=== PATIENT | female | born 1965 | race Caucasian/White ===

== ENCOUNTER 2016-07-11 17:36 | Inpatient (IN) ==
[2016-07-11] MEDS ORDERED: BENADRYL ONE (17:50)
[2016-07-11] MEDS ORDERED: BENADRYL IV ONE (17:50)
[2016-07-11] MEDS ORDERED: ATIVAN IV ONE (17:58)
[2016-07-11] MEDS ORDERED: ATIVAN ONE (17:59)
[2016-07-11] MEDS ORDERED: NS 2,000 ML ONE (18:07)
[2016-07-11] MEDS ORDERED: NS 1,000 ML IV ONE ×4 (18:23→20:53)
[2016-07-11] MEDS ORDERED: LEVOPHED ONE (18:27)
[2016-07-11] MEDS ORDERED: LEVOPHED 8 MG in D5 1/2 NS 250 ML IV SCH (18:30)
[2016-07-11 18:43] LABS: BASO% 0.1 % (0.0-0.8); EOS# 0.01 X1000 (0.0-0.7); HEMATOCRIT 39.2 % (37.0-47.0); HEMOGLOBIN 12.6 g/dL (12.0-16.0); IMM GRAN# 0.07 X1000 (0.0-0.04); IMM GRAN% 0.3 % (0.0-0.5); LYMPH# 11.11 X1000 (1.2-3.4); MANUAL DIFF NEEDED? YES; MCH 29.4 PG (27-31); MCHC 32.1 g/dL (33-37); MCV 91.6 FL (81-99); MONO# 1.29 X1000 (0.11-0.59); MONO% 5.5 % (1.7-9.3); MPV 11.3 FL (7.4-10.4); NEUT% 47.1 % (42.2-75.2); PLT 191 X1000 (130-400); RBC 4.28 XMIL (4.2-5.4)
[2016-07-11 18:49] LABS: ALBUMIN 3.9 g/dL (3.5-5.0); CALCIUM 9.2 mg/dL (8.8-10.2); POTASSIUM 4.2 mmol/L (3.5-5.1); TOTAL BILIRUBIN 0.5 mg/dL (0.20-1.00); TOTAL PROTEIN 6.7 g/dL (6.3-8.3)
[2016-07-11] MEDS ORDERED: NS 1,000 ML ONE ×2 (18:57→20:31)
[2016-07-11 19:03] LABS: INR 1.01 (0.86-1.15); PROTIME 13.6 Seconds (12.1-15.5); PTT PL 26.4 Seconds (22.6-43.9)
[2016-07-11 19:05] LABS: LYMPHS 34 % (21-51); MONO 6 % (1-9)
[2016-07-11 19:07] LABS: BE -8.2 mmoll (-3.0-3.0); BLOOD TYPE ARTERIAL; DRAW SITE R BRACHIAL; METHB 1.5 % (0.0-1.5); O2(CT) 15.8 mL/dL (15.0-23.0); PO2(98.6) 83 mmHg (60-100); SAMPLE BLOOD; SAO2 96.8 % (95.0-100.0)
[2016-07-11] MEDS ORDERED: SODIUM BICARBONATE 8.4% IV ONE ×2 (19:07→21:35)
[2016-07-11 19:11] LABS: MAGNESIUM 2.1 mg/dL (1.5-2.7)
[2016-07-11 19:14] LABS: pH(98.6) 7.19 (7.35-7.45)
[2016-07-11 19:15] LABS: ALLEN TEST YES; MODALITY CANNULA; PCO2(98.6) 53 mmHg (35-45)
[2016-07-11 19:25] LABS: ACETONE SERUM NEGATIVE (NEGATIVE)
[2016-07-11 19:37] LABS: CK INDEX 1.3 (0.0-2.5); CK-MB 9.75 ng/mL (0.0-5.0)
[2016-07-11 19:41] LABS: FREE T4 1.04 ng/dL (0.93-1.70)
[2016-07-11 20:59] LABS: BILIRUBIN URINE NEGATIVE (NEGATIVE); BLOOD URINE 4+ (NEGATIVE); CLARITY SL. CLOUDY (CLEAR); COLOR YELLOW; GLUCOSE URINE NEGATIVE (NEGATIVE); LEUKOCYTES URINE 1+ (NEGATIVE); NITRITE URINE NEGATIVE (NEGATIVE); PROTEIN URINE 2+(100 mg/dL) mg/dL (NEGATIVE); UROBILINOGEN URINE NORMAL
[2016-07-11 21:07] LABS: UR AMPHETAMINES QUAL NONE DETECTED (NONE DETECT); UR BARBITUATES QUAL NONE DETECTED (NONE DETECT); UR BENZODIAZEPIN QUAL NONE DETECTED (NONE DETECT); UR CANNABINOIDS QUAL NONE DETECTED (NONE DETECT); UR COCAINE QUAL NONE DETECTED (NONE DETECT); UR MDMA QUAL NONE DETECTED (NONE DETECT); UR METHADONE QUAL NONE DETECTED (NONE DETECT); UR METHAMPHETAMINE QUAL NONE DETECTED (NONE DETECT); UR OPIATES QUAL NONE DETECTED (NONE DETECT); UR OXYCODONE QUAL PRESUMPTIVE POSITIVE (NONE DETECT); UR PCP QUAL NONE DETECTED (NONE DETECT); UR TCA QUAL NONE DETECTED (NONE DETECT)
[2016-07-11 21:11] LABS: URINE EPITHELIAL CELLS <10 /HPF (<10); URINE WBC <10 /HPF (<10)
[2016-07-11 21:12] LABS: URINE CULTURE PL NEEDED? YES
[2016-07-11 21:13] LABS: URINE SOURCE CATH
[2016-07-11] MEDS ORDERED: VANCOMYCIN 1 GM/NS 1 GM/250 ML IVPB IV ONE (21:19)
[2016-07-11] MEDS ORDERED: ZOSYN 3.375 GM/NS 3.375 GM/50 ML IVPB IV ONE (21:19)
[2016-07-12] MEDS ORDERED: TYLENOL PO PRN ×2 (00:22→13:28)
[2016-07-12] MEDS ORDERED: ZOFRAN IV PRN ×2 (00:22→13:26)
[2016-07-12] MEDS ORDERED: NS 1,000 ML IV ONE (00:22)
[2016-07-12] MEDS ORDERED: MORPHINE IV PRN (00:22)
[2016-07-12] MEDS ORDERED: SALINE LOCK IV FLUID XX ONE (00:22)
[2016-07-12] MEDS ORDERED: VANCOMYCIN IV PER PHARMACY MISC SCH ×2 (00:30→13:00)
--- NOTE | 2016-07-12 00:57 | Diag Imaging Result Document ---
PROCEDURE NAME: HEAD W/O CONTRAST - 07/11/2016 STUDY: CT brain without. PROTOCOL: Dose reduction protocol. No parenchymal hemorrhage. No epidural or subdural hematoma. No subarachnoid hemorrhage. No mass identified on this noncontrasted exam. No hydrocephalus. IMPRESSION: No hemorrhage. Negative brain CT without contrast. A preliminary report was given at 8:49 p.m.
[2016-07-12] MEDS ORDERED: VANCOMYCIN 1 GM/NS 1 GM/250 ML IVPB IV ONE ×2 (01:00→01:15)
--- NOTE | 2016-07-12 01:41 | Diag Imaging Result Document ---
PROCEDURE NAME: ABDOMEN/PELVIS W/O CONTRAST - 07/11/2016 STUDY: CT abdomen and pelvis without oral or intravenous contrast. Normal spleen and adrenal glands. Normal noncontrasted pancreas and liver. The gallbladder is distended. No calcified stones or adjacent inflammation. No renal stones. No hydronephrosis. No aortic aneurysm. No bowel obstruction. Normal appendix. No abscess. A Cotto catheter has the urinary bladder decompressed. Normal uterus. No pelvic mass. No free fluid. IMPRESSION: 1. No renal stones or hydronephrosis. 2. No bowel obstruction. 3. Normal appendix. 4. Distended gallbladder but no adjacent inflammation or calcified stones. A preliminary report was given at 10:08 p.m.
[2016-07-12] MEDS ORDERED: NORCURON IV ONE (02:14)
[2016-07-12 02:27] LABS: BE -3.4 mmoll (-3.0-3.0); BLOOD TYPE ARTERIAL; DRAW SITE R RADIAL; METHB 1.2 % (0.0-1.5); O2(CT) 17.7 mL/dL (15.0-23.0); PO2(98.6) 98 mmHg (60-100); SAMPLE BLOOD; SAO2 98.6 % (95.0-100.0); SRATE 16 BPM; THB 13.1 g/dL (11.5-17.4); TVOL 500 mL; pH(98.6) 7.21 (7.35-7.45)
[2016-07-12 02:34] LABS: PCO2(98.6) 64 mmHg (35-45)
[2016-07-12 02:35] LABS: ALLEN TEST YES; MODALITY VENTILATOR
[2016-07-12] MEDS ORDERED: LASIX ONE (03:55)
[2016-07-12] MEDS ORDERED: LASIX IV ONE (03:56)
[2016-07-12] MEDS: SODIUM CHLORIDE 0.9% INJ SCH (04:50)
[2016-07-12] MEDS: PROTONIX IV SCH (04:50)
[2016-07-12] MEDS: HEPARIN SUBQ SCH ×3 (04:50→21:08)
[2016-07-12] MEDS: ZOSYN 2.25 GM/NS 2.25 GM/50 ML IVPB IV SCH ×3 (04:53→20:26)
[2016-07-12 05:00] LABS: ALLEN TEST YES; BE -7.2 mmoll (-3.0-3.0); BLOOD TYPE ARTERIAL; DRAW SITE R RADIAL; METHB 1.5 % (0.0-1.5); O2(CT) 23.4 mL/dL (15.0-23.0); PO2(98.6) 309 mmHg (60-100); SAMPLE BLOOD; SAO2 100.1 % (95.0-100.0); SRATE 15 BPM; THB 16.6 g/dL (11.5-17.4); TVOL 500 mL
[2016-07-12] MEDS ORDERED: ZOSYN 3.375 GM/NS 3.375 GM/50 ML IVPB IV SCH (05:00)
[2016-07-12 05:02] LABS: MODALITY VENTILATOR; PCO2(98.6) 67 mmHg (35-45); pH(98.6) 7.15 (7.35-7.45)
[2016-07-12] MEDS: DIPRIVAN 1% 1,000 MG/100 ML BOTTLE IV SCH ×8 (05:40→22:32)
--- NOTE | 2016-07-12 06:51 | HISTORY AND PHYSICAL ---
CHIEF COMPLAINT: Altered mental status. HISTORY OF PRESENT ILLNESS: This is a 50-year-old female who presented to [facility]. On arrival, she was exhibiting signs of erratic behavior apparently. It was originally thought that she had some sort of serotonin syndrome type process happening. She was given Benadryl and Ativan at that time. Laboratory data was obtained as well as CT scans. The CT scan of her head showed no hemorrhage, no acute intracranial process. CT of her abdomen and pelvis without contrast showed a mildly distended gallbladder but no adjacent inflammation or calcified stones. Otherwise was a negative exam. The patient does not have a history of COPD, CLL , questionable diabetes mellitus type 2. The patient does continue to smoke 1 pack of cigarettes per day reportedly. Laboratory data was obtained and showed an elevated white blood cell count of 23.63. The lymphocytes were noted to be 11.11 with neutrophils being 11.12. ABG pH was 7.19, pCO2 was 53, PO2 was 83. The patient's BUN was 41 with a creatinine of 2.7. She has a baseline creatinine of 0.5, which was recorded in March of this year. At some point in the emergency room at [facility], the patient became severely combative and required sedation to the point that she was placed on the ventilator. She was transferred to [facility] to be placed in the ICU for further evaluation and treatment. There is no family at the bedside and the patient is intubated and sedated. All information listed further in this HPI will be from verbal report given from Dr. Pulido, ER provider as well as, previous medical history. PAST MEDICAL HISTORY: 1. COPD, continues to smoke. 2. CLL. 3. Questionable diabetes mellitus type 2. PREVIOUS SURGICAL HISTORY: BTL. SOCIAL HISTORY: Reportedly lives at home with her family. Smokes 1 pack of cigarettes per day. Does not use illicit drugs. Unknown whether the patient uses alcohol. FAMILY HISTORY: Family history could not be obtained related to the patient's mentation at this time. HOME MEDICATIONS: The list has not been reconciled. An order will be placed for nursing to reconcile home medications when possible. ALLERGIES: No known drug allergies. REVIEW OF SYSTEMS: Review of systems was unobtainable related to patient's condition. PHYSICAL EXAMINATION: VITAL SIGNS: Temperature 97.7 degrees, pulse 78, respirations 19, blood pressure 90/53. The patient is on Levophed. Oxygen saturation 99% on mechanical ventilation. GENERAL: A sedated 50-year-old female, mechanically ventilated in ICU. No family at bedside. HEENT: Head is atraumatic, normocephalic. Pupils are 2 mm, fixed, sluggishly reactive to light. Extraocular eye movements could not be tested. Sclerae are anicteric. Conjunctivae are pink. Oral mucosa is moist. NECK: Short and thick. Trachea is midline. No JVD. CARDIAC: Regular rhythm. S1-S2 appreciated. No murmurs, gallops, rubs. LUNGS: Clear to auscultation bilaterally. No rhonchi, wheezes or rales. The patient is on mechanical ventilation. Symmetrical rise and fall with respirations. ABDOMEN: Protuberant, soft, nondistended, nontender. Bowel sounds present in all 4 quadrants. Hypoactive. No pulsatile mass. No organomegaly. GENITOURINARY: Cotto catheter is in place. Patient is anuric at this time. No urine in Cotto bag. Otherwise deferred. EXTREMITIES: No clubbing, cyanosis, or edema. One plus pedal pulses bilaterally. SKIN: Warm, dry and intact. No acute lesions or rash. NEUROLOGICAL: Patient is sedated with propofol on mechanical ventilation. Could not be assessed at this time. DIAGNOSTIC DATA: CT of the head, no acute intracranial process. No hemorrhage. CT of the abdomen and pelvis without contrast. Mildly distended gallbladder with no surrounding inflammation, otherwise negative examination. LABORATORY DATA: WBC 23.63, hemoglobin 12.6, hematocrit 39.2, platelet count 191,000. Coagulation studies within normal limits. D-dimer 0.31. ABG pH on arrival 7.19 , pCO2 53, PO2 83, bicarb 18.45. After intubation ABG recheck pH 7.21, pCO2 64, PO2 98, bicarb 22.2, sodium 142, potassium 4.2, chloride 104, carbon dioxide 18, BUN 41, creatinine 2.7, glucose 113. CK 723, troponin less than 0.010. Urine 4+ bacteria, 1+ WBC. Toxicology screen presumptively positive for oxycodone. Flu, strep and mono screen negative. Acetone level negative. ASSESSMENT/PLAN: 1. Toxic versus metabolic encephalopathy secondary to acute kidney injury or medications. It is unknown if the patient normally takes oxycodone or in what quantity she took this. She also reportedly takes antidepressives of some sort. The list is not available at this time. Patient is also in acute kidney injury with a creatinine of 2.7. In March of this year, her creatinine was 0.5. She was given 5 L of fluid at [facility] and is still anuric at this time and hypotensive. We will continue Levophed. 2. Questionable aspiration. Zosyn and vancomycin were given at [facility]. We will continue Zosyn 2.275 IV q.6 hours for renal dosing. 3. Urinary tract infection. This will be treated with Zosyn as noted above. 4. Acute respiratory failure. The patient has chronic obstructive pulmonary disease and was noted to be in mixed acidosis with an elevated CO2 and a low bicarbonate of 18.4. We will consult Dr. Gage Laboy for ventilation management. 5. Acute kidney injury. Fluid resuscitation x5 L boluses was given in [facility], 80 mg of Lasix was given in the ICU, as the patient is feeling anuric. We will consult Dr. Stallworth for assistance in this matter. 6. Additional orders. Blood cultures are pending as well as a cortisol level. We will check a TSH. Recheck laboratory data with CBC and BMP. We will order a renal ultrasound related to acute kidney injury to rule out obstruction. Continue propofol for sedation on ventilator. Protonix 40 mg IV q.24 hours and heparin 5000 units subcutaneously q.8 hours. Further recommendation per patient and clinical course. Dictated by ROSA Leung for Cory Tovar MD I personally reviewed above plan and examined patient cc: ROSA Leung MD MTDD
--- NOTE | 2016-07-12 07:36 | Diag Imaging Result Document ---
PROCEDURE NAME: CHEST-PORTABLE - 07/11/2016 PORTABLE CHEST: COMPARISON: 04/21/2016. FINDINGS: The lungs are well expanded. The heart is not enlarged. The vessels are not distended. No pneumonia. No pleural effusions identified. IMPRESSION: Negative chest.
--- NOTE | 2016-07-12 07:52 | Diag Imaging Result Document ---
PROCEDURE NAME: CHEST-1 VIEW - 07/12/2016 PORTABLE SUPINE CHEST: COMPARISON: 07/11/2016. FINDINGS: Interval placement of an endotracheal tube. This is located approximately 5 cm above the juan. The lungs are well expanded. The heart is not enlarged. The vessels are not distended. No pneumonia. No pleural effusions identified. IMPRESSION: Endotracheal tube in good position.
[2016-07-12 09:53] LABS: BASO% 0.2 % (0.0-0.8); EOS# 0.02 X1000 (0.0-0.7); EOS% 0.1 % (0.0-10.0); HEMOGLOBIN 13.2 g/dL (12.0-16.0); IMM GRAN# 0.05 X1000 (0.0-0.04); IMM GRAN% 0.2 % (0.0-0.5); LYMPH# 10.38 X1000 (1.2-3.4); LYMPH% 50.9 % (20.5-51.1); MANUAL DIFF NEEDED? YES; MCH 30.1 PG (27-31); MCHC 32.2 g/dL (33-37); MCV 93.4 FL (81-99); MONO# 1.04 X1000 (0.11-0.59); MONO% 5.1 % (1.7-9.3); MPV 11.1 FL (7.4-10.4); NEUT% 43.5 % (42.2-75.2); PLT 176 X1000 (130-400); RBC 4.39 XMIL (4.2-5.4)
[2016-07-12 10:01] LABS: MONO 2 % (1-9)
[2016-07-12 10:02] LABS: LYMPHS 32 % (21-51)
[2016-07-12 10:23] LABS: CALCIUM 7.7 mg/dL (8.8-10.2); POTASSIUM 3.6 mmol/L (3.5-5.1)
[2016-07-12] MEDS: 1/2 NS 1,000 ML IV SCH (10:37)
--- NOTE | 2016-07-12 10:56 | Diag Imaging Result Document ---
PROCEDURE NAME: US RENAL 2 (RETROPER) COMPLETE - 07/12/2016 RENAL ULTRASOUND: FINDINGS: The right kidney measures 11.4 x 5.8 x 4.8 cm. Normal renal echogenicity and cortical thickness. No renal stone or hydronephrosis. No renal mass. The left kidney measures 11.2 x 5.0 x 5.7 cm. Normal renal echogenicity and cortical thickness. No renal stone or hydronephrosis. No renal mass. A Cotto catheter has the urinary bladder decompressed. IMPRESSION: Normal renal ultrasound.
[2016-07-12] MEDS ORDERED: NS 250 ML ONE (11:34)
--- NOTE | 2016-07-12 12:14 | PROGRESS NOTE ---
DATE: 07/12/2016 SUBJECTIVE: The patient is sedated and intubated. OBJECTIVE: Vital Signs: Temperature 98.4, heart rate 64, respiratory rate 20, blood pressure 116/80. O2 saturation 100% on mechanical ventilator. General: This is a 50- year-old, female lying in bed, sedated and intubated. HEENT: Head is normocephalic and atraumatic. Anicteric sclerae. Pale conjunctivae. Pupils equally round and reactive to light and accommodation. Mucous membranes moist. Neck: No JVD noted. No carotid bruits. No lymphadenopathy. No thyromegaly. Cardiovascular: S1, S2 heard. No murmurs, gallops, or rubs. Regular rate and rhythm. Respiratory: Clear bilaterally to auscultation. No work of breathing or using accessory muscles. Mild coarse breath sounds in both bases. Abdomen is soft, nontender to palpation. Bowel sounds present. No organomegaly. Extremities: No clubbing, cyanosis, or edema. Peripheral pulses present in both legs but faint. Neurologic: The patient is sedated and intubated. LABORATORY DATA: White cell count 20.41, hemoglobin 13.2, hematocrit 41.0, platelets 176,000. ABG shows pH 7.15 with PCO2 of 67, pO2 of 309. BMP still pending. ASSESSMENT: 1. Acute respiratory failure, on ventilator. 2. Toxic versus metabolic encephalopathy. 3. Questionable aspiration. 4. Urinary tract infection. 5. Acute kidney injury. PLAN: The patient was admitted to the hospital, but we do not have anymore information. Apparently, the patient was found kind of altered at home. She was brought to the hospital. X- ray did not show any clear pneumonia. In any case, the patient is on antibiotics. White cell count is high. The patient is not spiking any fever. The patient has respiratory acidosis and hypoventilating. Also, for UTI, the patient receiving Zosyn and the urine cultures still pending. For BRANDON, Dr. Stallworth has been consulted. Addendum: Family at bedside they reported patient has COPD and leukemia, Dr. Lam is her primary oncologist. I think it could be COPD exacerbation plus BRANDON. Patient does not take Oxycodone in a regular basis but took some 2 days ago. In any case that could explain encephalopathy considering that patient does not take pain pills regular and in the setting of BRANDON that medication would stay in the system more time that it is supposed to. Will continue monitoring this patient in ICU. cc: Reji Schmitt MD MTDD
[2016-07-12] MEDS: DUONEB (A & A) INH SCH ×4 (12:24→23:32)
[2016-07-12] MEDS: SOLU-MEDROL IV SCH ×2 (12:29→20:25)
--- NOTE | 2016-07-12 13:02 | CONSULTATION ---
DATE OF CONSULTATION: 07/12/2016 REASON FOR CONSULTATION: Acute kidney injury. HISTORY OF PRESENT ILLNESS: Ms. Leon is a 50-year-old white female who is currently sedated on the ventilator and unable to provide any history. Therefore, the history is obtained entirely from the chart. She is a 50-year-old woman who presented to [place] with "erratic behavior." She was treated initially with Ativan and Benadryl and underwent imaging which disclosed no acute findings. Her laboratory data disclosed significant CO2 retention and acute kidney injury. She required further sedation and was then placed on the ventilator. She was treated with IV fluids and also required transient vasopressor support for hypotension. Her initial laboratory data found a creatinine of 2.7. She has been treated with volume resuscitation and subsequently has had an increase in her urine output. PAST MEDICAL HISTORY: COPD, CLL, possible diabetes. HOME MEDICATIONS: Not available. ALLERGIES: None known. SOCIAL HISTORY: Smoker. FAMILY HISTORY: Not otherwise obtainable. REVIEW OF SYSTEMS: Not otherwise obtainable. VITAL SIGNS: Blood pressure 116/80, heart rate 64, respirations 23, afebrile. Intake 1.6 L. Output 1.2 L PHYSICAL EXAMINATION: No acute distress. She is sedated on the ventilator. Skin is warm and dry. Conjunctivae are pink. Pupils are equal and 2 mm. Oropharynx is clear and moist. Neck veins are not distended. Trachea is midline. Heart is regular without gallops or murmurs. Lungs have equal breath sounds. No crackles or wheezes. Abdomen is soft, nontender. No organomegaly, masses, or bruits. Bowel sounds are positive. Extremities have no edema, clubbing, or cyanosis. Neurologic impaired by sedation. LABORATORY DATA: Sodium 149, potassium 3.6, chloride 109, bicarbonate 24. BUN 32, creatinine 1.3. Hemoglobin 13.2. IMPRESSION: 1. Acute kidney injury, improving with IV fluids. No further evaluation is required. 2. Hypernatremia. We will change IV fluids to half normal saline at 100 an hour. cc: Cornel Stallworth MD
[2016-07-12] MEDS ORDERED: NS 1,000 ML IV SCH (13:03)
[2016-07-12] MEDS ORDERED: LEVOPHED 8 MG in D5 1/2 NS 250 ML IV SCH (14:00)
--- NOTE | 2016-07-12 17:01 | Diag Imaging Result Document ---
PROCEDURE NAME: US ABDOMEN-COMPLETE - 07/12/2016 ABDOMINAL ULTRASOUND: FINDINGS: Normal pancreas. No aneurysmal dilatation to the abdominal aorta. Normal inferior vena cava. The kidneys are unchanged from the complete study performed earlier. No hydronephrosis. Normal liver. Normal gallbladder. No stones. The gallbladder is distended. The wall is not thickened. The spleen is not enlarged. No ascites. IMPRESSION: Distended gallbladder, otherwise negative abdominal ultrasound.
[2016-07-12] MEDS: VANCOMYCIN 2,000 MG in NS 500 ML IV SCH (17:18)
--- NOTE | 2016-07-12 19:46 | Diag Imaging Result Document ---
PROCEDURE NAME: CT THORAX W/O CONTRAST - 07/12/2016 CT THORAX WITHOUT CONTRAST: FINDINGS: No contrast administered per request of the referring provider. A dose reduction protocol was used. No comparison CT thorax is available. There is an endotracheal tube in satisfactory position. There is some dependent atelectasis, primarily at the right lower lobe. There are scattered small peripheral infiltrates. There is no large area of dense consolidation seen. There is no substantial pleural effusion seen. There is no pneumothorax. There are mild emphysematous changes at the right upper lobe. There are nonspecific small mediastinal lymph nodes. IMPRESSION: 1. Scattered small peripheral infiltrates. 2. Some dependent atelectasis, primarily at the right lower lobe. Mild emphysematous changes at right upper lobe. Preliminary results were provided at 5:36 p.m. on 07/12/2016.
[2016-07-13] MEDS: DIPRIVAN 1% 1,000 MG/100 ML BOTTLE IV SCH ×11 (00:15→22:56)
[2016-07-13] MEDS: ZOSYN 2.25 GM/NS 2.25 GM/50 ML IVPB IV SCH ×4 (01:56→20:27)
[2016-07-13] MEDS: MORPHINE IV PRN ×3 (01:57→22:59)
[2016-07-13] MEDS: DUONEB (A & A) INH SCH ×6 (03:35→22:39)
[2016-07-13] MEDS: 1/2 NS 1,000 ML IV SCH ×2 (03:38→13:01)
[2016-07-13] MEDS: SOLU-MEDROL IV SCH ×3 (04:09→20:27)
[2016-07-13] MEDS: HEPARIN SUBQ SCH (04:10)
[2016-07-13] MEDS: PROTONIX IV SCH (04:10)
[2016-07-13 04:40] LABS: ALLEN TEST YES; BE -1.6 mmoll (-3.0-3.0); BLOOD TYPE ARTERIAL; DRAW SITE R RADIAL; METHB 1.7 % (0.0-1.5); O2(CT) 15.2 mL/dL (15.0-23.0); PCO2(98.6) 45 mmHg (35-45); PO2(98.6) 60 mmHg (60-100); SAMPLE BLOOD; SAO2 94.6 % (95.0-100.0); SRATE 22 BPM; THB 11.8 g/dL (11.5-17.4); TVOL 500 mL; pH(98.6) 7.34 (7.35-7.45)
[2016-07-13 04:41] LABS: MODALITY VENTILATOR
[2016-07-13 06:23] LABS: BASO% 0.4 % (0.0-0.8); EOS# 0.05 X1000 (0.0-0.7); EOS% 1.8 % (0.0-10.0); HEMATOCRIT 33.6 % (37.0-47.0); HEMOGLOBIN 11.5 g/dL (12.0-16.0); LYMPH# 0.15 X1000 (1.2-3.4); LYMPH% 5.4 % (20.5-51.1); MANUAL DIFF NEEDED? YES; MCH 30.3 PG (27-31); MCHC 34.2 g/dL (33-37); MCV 88.7 FL (81-99); MONO# 0.12 X1000 (0.11-0.59); MONO% 4.3 % (1.7-9.3); MPV 10.8 FL (7.4-10.4); NEUT% 88.1 % (42.2-75.2); PLT 89 X1000 (130-400); RBC 3.79 XMIL (4.2-5.4)
[2016-07-13 06:41] LABS: LYMPHS 10 % (21-51); MONO 4 % (1-9)
[2016-07-13 06:46] LABS: CALCIUM 7.4 mg/dL (8.8-10.2)
--- NOTE | 2016-07-13 08:59 | Diag Imaging Result Document ---
PROCEDURE NAME: CHEST-PORTABLE - 07/13/2016 PORTABLE CHEST: Compared with 07/12/2016. FINDINGS: Endotracheal tube remains in place with its tip approximately 6 cm above the juan. There has been insertion of a PIC-line from the left. The tip of the PIC-line is at the expected location of the distal superior vena cava. Heart size is normal. The lungs appear grossly clear. The scattered small peripheral infiltrates which were seen on the previous evening's CT scan are less apparent on this exam. There is no pleural effusion or pneumothorax identified. IMPRESSION: Tip of PIC-line at distal superior vena cava. No other acute changes. MTDD
[2016-07-13 09:03] LABS: AGAP 13; ALBUMIN 3.3 g/dL (3.5-5.0); BUN 35 mg/dL (8-22); CHLORIDE 105 mmol/L (98-107); COSMO 294; POTASSIUM 3.9 mmol/L (3.5-5.1); SODIUM 142 mmol/L (136-145); TCO2 24 mmol/L (25-35)
[2016-07-13 10:36] LABS: MANUAL DIFF NEEDED? NO
[2016-07-13 10:52] LABS: AGAP 16; BUN 35 mg/dL (8-22); CALCIUM 7.8 mg/dL (8.8-10.2); CHLORIDE 106 mmol/L (98-107); COSMO 296; POTASSIUM 3.8 mmol/L (3.5-5.1); SODIUM 143 mmol/L (136-145); TCO2 21 mmol/L (25-35)
[2016-07-13 11:15] LABS: BASO% 0.1 % (0.0-0.8); HEMATOCRIT 36.3 % (37.0-47.0); HEMOGLOBIN 11.8 g/dL (12.0-16.0); IMM GRAN# 0.05 X1000 (0.0-0.04); IMM GRAN% 0.3 % (0.0-0.5); LYMPH# 5.25 X1000 (1.2-3.4); LYMPH% 36.4 % (20.5-51.1); MCH 30.5 PG (27-31); MCHC 32.5 g/dL (33-37); MCV 93.8 FL (81-99); MONO# 0.29 X1000 (0.11-0.59); NEUT% 61.2 % (42.2-75.2); PLT 117 X1000 (130-400); RBC 3.87 XMIL (4.2-5.4)
--- NOTE | 2016-07-13 11:56 | PROGRESS NOTE ---
DATE: 07/13/2016 SUBJECTIVE: Patient is sedated and intubated. OBJECTIVE: Vital Signs: Temperature 98.7 degrees, heart rate 81, respiratory rate 22, blood pressure 172/81, O2 saturation 93% on mechanical ventilator at FiO2 of 40%. General Examination: This is a 50-year-old, female lying in bed, in no acute distress. Sedated and intubated. HEENT: Head is normocephalic and atraumatic. Anicteric sclerae and pale conjunctivae. Mucous membranes dry. Pupils equal, round, and reactive to light and accommodation. Neck: No JVD noted. No carotid bruits. No lymphadenopathy. No thyromegaly. Cardiovascular Examination: S1 and S2 heard. No murmurs, gallops, or rubs. Regular rate and rhythm. Respiratory Examination: Clear bilaterally to auscultation. No work of breathing or using accessory muscles. Mild coarse breath sounds in both bases but better in comparing with yesterday. Abdomen: Soft. Bowel sounds present. No organomegaly. Extremities: No clubbing, cyanosis, or edema. Peripheral pulses present in both legs but faint. Neurological Examination: Patient is sedated and intubated. Laboratory Data: CBC is still pending. ABG shows pH 7.34 with pCO2 45. The BMP is completely unremarkable including creatinine 0.8. ASSESSMENT AND PLAN: 1. Acute hypercapnic respiratory failure, on ventilator. The patient is doing fine. Patient's CO2 has gone down and pH is almost back to normal. I think this patient is improving definitely and that high CO2 is definitely most likely related to chronic obstructive pulmonary disease. In any case, we are going to continue with ventilatory support and pulmonary is also following this patient. We will see when they decided to start weaning trials on her. 2. Toxic versus metabolic encephalopathy. The patient is sedated because of the ventilator. We will continue monitoring this patient here in the intensive care unit. 3. Bilateral pneumonia. CT of the chest shows small infiltrates in both lungs so we are going to continue with intravenous antibiotics. In this case, it is vancomycin plus Zosyn. 4. Urinary tract infection. The urine culture showed multiple contaminants so it is not really helpful. Imaging came in negative. Also, we decided to get another urine culture that can be negative because the patient is already on antibiotics. We will continue with the same management by now. 5. Acute kidney injury. That condition is completely resolved with creatinine of 0.8. That is most likely related to dehydration. At this point, we are going to continue with the same management. 6. History of chronic lymphocytic leukemia. Aware. cc: Reji Schmitt MD
[2016-07-13] MEDS: VANCOMYCIN 2,000 MG in NS 500 ML IV SCH (15:21)
[2016-07-14] MEDS: 1/2 NS 1,000 ML IV SCH ×3 (00:51→21:00)
[2016-07-14] MEDS: DIPRIVAN 1% 1,000 MG/100 ML BOTTLE IV SCH ×7 (00:51→11:52)
[2016-07-14] MEDS: ZOSYN 2.25 GM/NS 2.25 GM/50 ML IVPB IV SCH ×2 (02:13→07:52)
[2016-07-14] MEDS: DUONEB (A & A) INH SCH ×6 (03:47→22:50)
[2016-07-14] MEDS: PROTONIX IV SCH (04:43)
[2016-07-14] MEDS: SOLU-MEDROL IV SCH ×3 (04:44→21:00)
[2016-07-14 06:19] LABS: ALLEN TEST YES; BE -0.8 mmoll (-3.0-3.0); BLOOD TYPE ARTERIAL; DRAW SITE R RADIAL; MODALITY VENTILATOR; O2(CT) 14.3 mL/dL (15.0-23.0); PCO2(98.6) 41 mmHg (35-45); PO2(98.6) 59 mmHg (60-100); SAMPLE BLOOD; SAO2 94.2 % (95.0-100.0); SRATE 22 BPM; THB 11.1 g/dL (11.5-17.4); TVOL 500 mL; pH(98.6) 7.38 (7.35-7.45)
[2016-07-14 06:24] LABS: MANUAL DIFF NEEDED? NO
--- NOTE | 2016-07-14 06:25 | Diag Imaging Result Document ---
PROCEDURE NAME: CHEST-1 VIEW - 07/14/2016 PORTABLE CHEST: COMPARISON: Compared to 07/13/2016. FINDINGS: Endotracheal tube remains in good position. No change in the left-sided PICC line. The lungs are well expanded. The heart is not enlarged. The vessels are not distended. No pleural effusions identified. The overall appearance of the chest is quite similar to that of the prior exam. IMPRESSION: Stable chest.
[2016-07-14 06:38] LABS: BASO% 0.1 % (0.0-0.8); EOS# 0.01 X1000 (0.0-0.7); EOS% 0.1 % (0.0-10.0); HEMATOCRIT 35.3 % (37.0-47.0); HEMOGLOBIN 11.4 g/dL (12.0-16.0); IMM GRAN# 0.06 X1000 (0.0-0.04); IMM GRAN% 0.4 % (0.0-0.5); LYMPH# 6.24 X1000 (1.2-3.4); LYMPH% 38.9 % (20.5-51.1); MCH 30.2 PG (27-31); MCHC 32.3 g/dL (33-37); MCV 93.4 FL (81-99); MONO# 0.49 X1000 (0.11-0.59); MONO% 3.1 % (1.7-9.3); MPV 12.5 FL (7.4-10.4); NEUT% 57.4 % (42.2-75.2); PLT 129 X1000 (130-400); RBC 3.78 XMIL (4.2-5.4)
[2016-07-14 06:45] LABS: AGAP 16; BUN 32 mg/dL (8-22); CALCIUM 7.6 mg/dL (8.8-10.2); CHLORIDE 104 mmol/L (98-107); COSMO 290; POTASSIUM 4.3 mmol/L (3.5-5.1); SODIUM 140 mmol/L (136-145); TCO2 20 mmol/L (25-35)
--- NOTE | 2016-07-14 09:21 | CONSULTATION ---
DATE OF CONSULTATION: 07/12/2016 REFERRING PHYSICIAN: Dr. Reji Schmitt. Thank you very much for asking me to see this very unfortunate, 50-year-old white female. I pleased to assist in her care. DIAGNOSES: 1. Metabolic delirium and likely to be toxic encephalopathy from medications, possibly infection. 2. Respiratory failure. 3. History of chronic lymphocytic leukemia. 4. History of hypertension. 5. History of chronic schizophrenia. RECOMMENDATIONS: I will add bronchodilators as well as IV Solu-Medrol. I agree with the Zosyn and vancomycin. Will adjust the mechanical ventilator. Give her volume infusion. Monitor her gas exchange. She does not appear to have a pneumonia in the lower respiratory tract currently. Will follow closely along with you. HISTORY: This very unfortunate 50-year-old white female presented to [facility] approximately 18 hours ago with delirium and erratic behavior. She required intubation and subsequently was transferred here, and I am consulted to assist in her care. She is unable to give any history as she is sedated. There are no family members present. PAST MEDICAL HISTORY: Positive for COPD, as well as CLL, diabetes mellitus, and possible schizophrenia. SOCIAL HISTORY: She lives at home and is a smoker. She has a supportive family supposedly. SURGICAL HISTORY: Positive for tubal ligation. REVIEW OF SYSTEMS: Except for the features mentioned above, are negative for weight loss, night sweats, weakness, or anorexia. No ENT symptoms of odynophagia, dysphagia, epistaxis or painful swallowing. No eye symptoms of blindness, blurring, or diplopia. No other cardiac or pulmonary symptoms other than mentioned. No nausea, vomiting, constipation, diarrhea. No hematuria, polyuria, nocturia, dysuria. No joint or muscle pain, stiffness or swelling. No skin rashes or itching. No bruises. No seizures, loss of consciousness, paralysis. Except for the features mentioned above, all other symptoms on the review of systems are negative. FAMILY HISTORY: Positive for ischemic heart disease as well as hypertension. PHYSICAL EXAMINATION: This kind, elderly lady is on mechanical ventilator. She has a blood pressure of 116/80, pulse 64, respirations 23, temperature 98.4 degrees. HEENT exam reveals no thyromegaly or adenopathy. Pupils are equal and reactive. Her neck is supple. She is nonicteric. Chest reveals bilateral equally generated breath sounds with some expiratory wheezes and symmetrical mechanically generated excursions. Cardiac exam reveals a regular rhythm without an appreciable murmur. Abdomen is soft, nontender. No hepatosplenomegaly. Extremities reveal no evidence of cyanosis. Neurologically, she is reportedly negative on CAT scan and reportedly moves all 4. She is sedated currently. The chest radiograph is clear. The sodium is 142, potassium 4.2, chloride 104, CO2 of 20. BUN 41, creatinine 2.7. Glucose 113. White count 20,400 with a hemoglobin of 13.3, hematocrit of 40.1, and platelets 176,000. The ABG shows a 7.15 pH with a 64 O2 and a 300 INCOMPLETE REPORT - DICTATION CUTS OFF
[2016-07-14] MEDS: MORPHINE IV PRN ×2 (13:06→21:30)
[2016-07-14] MEDS: ZOSYN 3.375 GM/NS 3.375 GM/50 ML IVPB IV SCH ×2 (13:08→21:00)
[2016-07-14 13:47] LABS: ALLEN TEST YES; BLOOD TYPE ARTERIAL; DRAW SITE R RADIAL; METHB 1.5 % (0.0-1.5); MODALITY VENTILATOR; O2(CT) 15.8 mL/dL (15.0-23.0); PCO2(98.6) 40 mmHg (35-45); PO2(98.6) 69 mmHg (60-100); SAMPLE BLOOD; SAO2 96.7 % (95.0-100.0); THB 11.9 g/dL (11.5-17.4)
[2016-07-14] MEDS: VANCOMYCIN 2,500 MG in NS 500 ML IV SCH (15:03)
--- NOTE | 2016-07-14 17:35 | PROGRESS NOTE ---
DATE: 07/14/2016 SUBJECTIVE: Patient is sedated and intubated. OBJECTIVE: Vital Signs: Temperature 98.3 degrees, heart rate 76, respiratory rate 28, blood pressure 183/93, O2 saturation 95% on mechanical ventilator at 50%. General: This is a 50-year- old female lying in bed, in no acute distress, sedated and intubated. HEENT: Head is normocephalic, atraumatic. Anicteric sclerae. Pale conjunctivae. Mucous membranes dry. Pupils equal, round, reactive to light and accommodation. Neck: No JVD. No carotid bruits. No lymphadenopathy. No thyromegaly. Cardiovascular: S1, S2 heard. No murmurs, gallops, or rubs. Regular rate and rhythm. Respiratory: Coarse breath sounds in both bases but the rest of the exam is clear bilaterally to auscultation. No work of breathing or using accessory muscles. Abdomen: Soft. Nontender to palpation. Bowel sounds present. No organomegaly. Extremities: No clubbing, cyanosis, or edema. Peripheral pulses present in both legs. Neurological: Patient is sedated and intubated. LABORATORY DATA: White cell count 16.06, hemoglobin 11.4, hematocrit 35.3, platelets 129,000. ABG is okay with pH 7.40, with pCO2 40. BMP is completely unremarkable. ASSESSMENT AND PLAN: 1. Acute hypercapnic respiratory failure, on ventilator. The patient is doing fine now. He is on FiO2 50% and pH showed good gas exchange. At this point, we are going to continue with the same management. Pulmonary is following this patient. 2. Metabolic encephalopathy. Patient is sedated. We will continue monitoring this patient in the intensive care unit. 3. Bilateral pneumonia. We will continue with vancomycin and Zosyn. CT of the chest shows small infiltrates. We will continue with the same management. 4. Urinary tract infection ruled out. Patient is not on any antibiotics. 5. Acute kidney injury. That condition is completely resolved. 6. History of chronic lymphocytic leukemia. Aware. cc: Reji Schmitt MD
[2016-07-14] MEDS: HALDOL IV PRN (18:22)
[2016-07-15] MEDS: XANAX PO PRN (00:05)
[2016-07-15] MEDS: HALDOL IV PRN ×2 (00:37→21:29)
[2016-07-15] MEDS: ZOSYN 3.375 GM/NS 3.375 GM/50 ML IVPB IV SCH ×4 (01:37→19:32)
[2016-07-15] MEDS: DUONEB (A & A) INH SCH ×6 (03:59→23:45)
[2016-07-15] MEDS: PROTONIX IV SCH (04:10)
[2016-07-15 04:51] LABS: ALLEN TEST YES; BE -0.1 mmoll (-3.0-3.0); BLOOD TYPE ARTERIAL; DRAW SITE R RADIAL; METHB 1.3 % (0.0-1.5); MODALITY CANNULA; PCO2(98.6) 45 mmHg (35-45); PO2(98.6) 75 mmHg (60-100); SAMPLE BLOOD; THB 7.4 g/dL (11.5-17.4); pH(98.6) 7.36 (7.35-7.45)
[2016-07-15 05:43] LABS: AGAP 13; BUN 31 mg/dL (8-22); CALCIUM 7.7 mg/dL (8.8-10.2); CHLORIDE 106 mmol/L (98-107); COSMO 290; POTASSIUM 4.3 mmol/L (3.5-5.1); SODIUM 141 mmol/L (136-145); TCO2 22 mmol/L (25-35)
[2016-07-15] MEDS: 1/2 NS 1,000 ML IV SCH ×2 (05:47→21:29)
[2016-07-15 07:06] LABS: BASO% 0.1 % (0.0-0.8); HEMATOCRIT 35.7 % (37.0-47.0); HEMOGLOBIN 11.4 g/dL (12.0-16.0); IMM GRAN# 0.07 X1000 (0.0-0.04); IMM GRAN% 0.4 % (0.0-0.5); LYMPH% 40.2 % (20.5-51.1); MANUAL DIFF NEEDED? YES; MCH 30.1 PG (27-31); MCHC 31.9 g/dL (33-37); MCV 94.2 FL (81-99); MONO# 0.53 X1000 (0.11-0.59); MONO% 3.1 % (1.7-9.3); MPV 12.6 FL (7.4-10.4); NEUT% 56.2 % (42.2-75.2); PLT 108 X1000 (130-400); RBC 3.79 XMIL (4.2-5.4)
[2016-07-15 07:21] LABS: LYMPHS 25 % (21-51); MONO 3 % (1-9); NRBC 6 % (0-0)
--- NOTE | 2016-07-15 08:21 | Diag Imaging Result Document ---
PROCEDURE NAME: CHEST-1 VIEW - 07/15/2016 PORTABLE CHEST X-RAY: COMPARISON: 07/14/2016. FINDINGS: Stable left PICC line. The endotracheal tube has been removed. There is some left upper lobe infiltrate similar to prior. No new infiltrates. IMPRESSION: Persistent left upper infiltrate suggesting pneumonia.
[2016-07-15] MEDS: SOLU-MEDROL IV SCH ×2 (08:40→20:09)
[2016-07-15] MEDS ORDERED: APRESOLINE IV PRN (10:02)
--- NOTE | 2016-07-15 11:44 | PROGRESS NOTE ---
DATE: 07/15/2016 SUBJECTIVE: This patient was extubated yesterday, today she is not having any respiratory distress. This patient is alert and oriented x2. She knows she is in the hospital; she does not remember which one. When I came into the room she was talking nonsense. She remembered that she was intubated yesterday. OBJECTIVE: Vital Signs: Temperature 98 degrees, pulse 62, respiratory rate 23, blood pressure 176/90, oxygen saturation 93 on 3 L of nasal cannula. HEENT: Head normocephalic. No trauma. PERRLA. Neck: Supple. No JVD. No masses. Central trachea. Chest: Decreased breath sounds globally, mild scattered rhonchi mostly at the level of the left upper lung. This patient is not using accessory muscles or having work of breathing. Abdomen: Soft, obese, nontender, nondistended. Extremities: No edema. No clubbing. No cyanosis. Neurological examination: The patient is alert. She is oriented x2. Like I mentioned before, she knows that she is in the hospital. She does not remember which one. She was talking when I came into the room. She moves all 4 extremities and she is following commands. She is answering questions properly. LABORATORY: WBC 16.9, hemoglobin 11.4, hematocrit 35.7. Sodium 141, potassium 4.3, chloride 106, bicarbonate 22, BUN 31, creatinine 0.6, glucose 131, calcium 7.7. ASSESSMENT AND PLAN: 1. Acute hypercapnic respiratory failure. This patient was on mechanical ventilation and was extubated yesterday. Today she is not having any work of breathing or using any accessory muscles. The oxygen saturation has been above 92 with nasal cannula. We have an x-ray report that showed a left upper lobe infiltrate suggestive of pneumonia. Will continue with antibiotics. 2. Metabolic encephalopathy. This patient is a little bit confused. She is not oriented in time, and she was talking nonsense when I came into the room, but she is answering my questions properly. We will continue to monitor. 3. Left upper lung pneumonia. Continue with vancomycin and Zosyn. Will monitor. 4. Acute kidney injury, resolved. 5. Nutritional status. This patient is tolerating fluids. I will advance her diet to healthy diet. 6. Hypertension. Her blood pressure has been around 170s, low 180s. I will start this patient on hydralazine. As per the patient, she has never been on blood pressure medications. 7. Physical deconditioning. Physical therapy is on board and they were working with her today. DISPOSITION: I will keep this patient for 1 more day in the intensive care unit. I will monitor her blood pressure and also the ins and outs. I will start her on a diet as well, and I will continue with physical therapy and the same treatment. cc: Cj Cox MD
[2016-07-15] MEDS ORDERED: APRESOLINE PO SCH (13:00)
[2016-07-15] MEDS: VANCOMYCIN 2,500 MG in NS 500 ML IV SCH (15:56)
[2016-07-15] MEDS: MORPHINE IV PRN (20:10)
[2016-07-16] MEDS: ZOSYN 3.375 GM/NS 3.375 GM/50 ML IVPB IV SCH ×4 (00:57→22:16)
[2016-07-16] MEDS: DUONEB (A & A) INH SCH ×4 (03:55→15:41)
[2016-07-16] MEDS: PROTONIX IV SCH (04:31)
[2016-07-16] MEDS: HALDOL IV PRN ×3 (04:31→22:17)
[2016-07-16 05:28] LABS: MANUAL DIFF NEEDED? NO
[2016-07-16 05:36] LABS: BASO% 0.1 % (0.0-0.8); HEMATOCRIT 34.8 % (37.0-47.0); HEMOGLOBIN 11.2 g/dL (12.0-16.0); IMM GRAN# 0.07 X1000 (0.0-0.04); IMM GRAN% 0.5 % (0.0-0.5); LYMPH# 7.99 X1000 (1.2-3.4); LYMPH% 53.5 % (20.5-51.1); MCH 29.9 PG (27-31); MCHC 32.2 g/dL (33-37); MONO# 0.54 X1000 (0.11-0.59); MONO% 3.6 % (1.7-9.3); MPV 12.9 FL (7.4-10.4); NEUT% 42.3 % (42.2-75.2); PLT 106 X1000 (130-400); RBC 3.74 XMIL (4.2-5.4)
[2016-07-16] MEDS: MORPHINE IV PRN ×3 (05:44→22:17)
[2016-07-16] MEDS: 1/2 NS 1,000 ML IV SCH ×2 (05:46→06:29)
[2016-07-16 06:19] LABS: AGAP 8; BUN 23 mg/dL (8-22); CALCIUM 8.3 mg/dL (8.8-10.2); CHLORIDE 104 mmol/L (98-107); COSMO 283; POTASSIUM 4.1 mmol/L (3.5-5.1); SODIUM 139 mmol/L (136-145); TCO2 27 mmol/L (25-35)
--- NOTE | 2016-07-16 07:44 | Diag Imaging Result Document ---
PROCEDURE NAME: CHEST-1 VIEW - 07/16/2016 SINGLE FRONTAL RADIOGRAPH OF THE CHEST: COMPARISON: 07/15/2016. FINDINGS: Left PICC line is stable. Very mild left upper lobe infiltrate has probably improved somewhat. No new consolidations are identified. Cardiac silhouette is stable. IMPRESSION: Improvement of the already mild left upper lobe infiltrate. Stable chest, otherwise.
[2016-07-16] MEDS: SOLU-MEDROL IV SCH ×2 (08:18→22:16)
[2016-07-16] MEDS: APRESOLINE PO SCH ×3 (08:18→16:53)
[2016-07-16] MEDS: PRINIVIL PO SCH (08:26)
--- NOTE | 2016-07-16 09:27 | PROGRESS NOTE ---
DATE: 07/16/2016 SUBJECTIVE: This patient states that she is feeling much better. She was extubated 2 days ago. She is still having high blood pressure. Yesterday I started this patient on hydralazine 3 times a day 25 mg p.o. and today I will start this patient on lisinopril. She is already on hydralazine p.r.n. IV. She is tolerating p.o. I will stop the normal saline and I will consult physical therapy as well. OBJECTIVE: Vital Signs: Temperature 97.8 degrees, pulse 68, respiratory rate 19, blood pressure 187/93, oxygen saturation 96 on 3 L of nasal cannula. HEENT: Head normocephalic. No trauma. PERRLA. Neck: Supple. No JVD. No masses. Central trachea. Chest: Decreased breath sounds globally. Mild scattered rhonchi, mostly at the level of the left upper lung. Presence of end- expiratory wheezing. She is not using any accessory muscles or having work of breathing. Abdomen: Soft, nontender, nondistended. Obese. Extremities: No edema. No clubbing. No cyanosis. Neurological: The patient is alert and oriented x3. No focal neurological deficits. LABORATORY: WBC 14.9, hemoglobin 11.2, hematocrit 34.8, platelet 106,000. Sodium 139, potassium 4.1, chloride 104, bicarbonate 27, BUN 23, creatinine 0.5, glucose 122, calcium 8.3. ASSESSMENT AND PLAN: 1. Acute hypercapnic respiratory failure. This patient was on mechanical ventilation. She was extubated 2 days ago. She is doing much better today. She is not having any work of breathing or using accessory muscles. Her oxygen saturation has been stable. The x-ray today showed an improvement of the left upper lobe infiltrate. Continue with antibiotics. 2. Metabolic encephalopathy. I believe this is her baseline. She today is alert and oriented x3. No focal neurological deficits. 3. Left upper lung pneumonia. Continue with vancomycin and Zosyn. Will monitor. 4. Acute kidney injury. Resolved. 5. Hypertension. The blood pressure has been elevated. Yesterday I started this patient on hydralazine 3 times a day and today I will start her on lisinopril. Also I will stop the normal saline. 6. Nutritional status. This patient is tolerating p.o. Continue with healthy diet. 7. Physical deconditioning. Physical therapy has been consulted. 8. This patient's blood pressure is still elevated around 180s to 200. I will continue with blood pressure medication and I will add lisinopril to the list. If the blood pressure stabilizes in the afternoon I will transfer this patient to the medical floor. Also I will stop the normal saline. CRITICAL CARE TIME: 35 minutes. cc: Cj Cox MD
[2016-07-16] MEDS ORDERED: CATAPRES PO ONE (10:41)
[2016-07-16] MEDS: VANCOMYCIN 2,500 MG in NS 500 ML IV SCH (14:34)
[2016-07-16] MEDS: CATAPRES PO SCH (22:16)
[2016-07-17] MEDS: SODIUM CHLORIDE 0.9% INJ SCH (04:23)
[2016-07-17] MEDS: PROTONIX IV SCH (04:23)
[2016-07-17] MEDS: ZOSYN 3.375 GM/NS 3.375 GM/50 ML IVPB IV SCH ×3 (04:23→17:56)
[2016-07-17 06:30] LABS: MANUAL DIFF NEEDED? NO
[2016-07-17 06:34] LABS: BASO% 0.1 % (0.0-0.8); HEMATOCRIT 38.8 % (37.0-47.0); HEMOGLOBIN 12.4 g/dL (12.0-16.0); IMM GRAN# 0.17 X1000 (0.0-0.04); IMM GRAN% 0.9 % (0.0-0.5); LYMPH# 9.63 X1000 (1.2-3.4); LYMPH% 53.3 % (20.5-51.1); MCH 29.6 PG (27-31); MCV 92.6 FL (81-99); MONO# 0.54 X1000 (0.11-0.59); MPV 12.4 FL (7.4-10.4); NEUT% 42.7 % (42.2-75.2); PLT 133 X1000 (130-400); RBC 4.19 XMIL (4.2-5.4)
[2016-07-17 06:54] LABS: AGAP 12; BUN 20 mg/dL (8-22); CALCIUM 8.4 mg/dL (8.8-10.2); CHLORIDE 100 mmol/L (98-107); COSMO 284; SODIUM 140 mmol/L (136-145); TCO2 28 mmol/L (25-35)
[2016-07-17] MEDS: DUONEB (A & A) INH SCH ×5 (07:53→23:04)
[2016-07-17] MEDS: SOLU-MEDROL IV SCH ×2 (08:33→20:34)
[2016-07-17] MEDS: MORPHINE IV PRN ×2 (08:33→16:40)
[2016-07-17] MEDS: APRESOLINE PO SCH ×2 (08:33→16:40)
[2016-07-17] MEDS: CATAPRES PO SCH ×2 (08:33→20:34)
[2016-07-17] MEDS: PRINIVIL PO SCH (08:34)
--- NOTE | 2016-07-17 08:41 | Diag Imaging Result Document ---
PROCEDURE NAME: CHEST-1 VIEW - 07/17/2016 SINGLE FRONTAL RADIOGRAPH OF THE CHEST: COMPARISON: 07/16/2016. FINDINGS: The left PICC line is stable. Very mild left upper lobe infiltrate has essentially resolved. No new consolidations are identified. Cardiac silhouette is stable. IMPRESSION: Essential resolution of the very mild left upper lobe infiltrate. The chest is stable, otherwise.
[2016-07-17] MEDS: VANCOMYCIN 2,500 MG in NS 500 ML IV SCH (15:10)
[2016-07-17] MEDS: NICODERM PATCH TD SCH (15:37)
--- NOTE | 2016-07-17 16:00 | PROGRESS NOTE ---
DATE: 07/17/2016 SUBJECTIVE: This patient states that she is feeling much better. She was extubated 3 days ago. She is still having high blood pressure. I increased the dose of hydralazine from 25 mg p.o. t.i.d. to 50 mg p.o. t.i.d. Also this patient was started 2 days ago on clonidine. We will continue with the same management. OBJECTIVE: Vital Signs: Temperature 98.2 degrees, pulse 78, respiratory rate 20, blood pressure 160/89, oxygen saturation 97% on 2 L of nasal cannula. HEENT: Head normocephalic. No trauma. PERRLA. Neck: Supple. JVD no masses. Central trachea. Chest: Decreased breath sounds globally. Mild scattered rhonchi mostly at the bases. She is not using any accessory muscles or having work of breathing. Abdomen: Soft, nontender, nondistended, obese. Extremities: No edema. No clubbing. No cyanosis. Neurological: The patient is alert and oriented x3. No focal neurological deficits. LABORATORY: WBC 18, hemoglobin 12.4, hematocrit 38.8, platelets 133,000. Sodium 140, potassium 4, chloride 100, bicarbonate 28, BUN 20, creatinine 0.6, glucose 138, calcium 8.4. ASSESSMENT AND PLAN: 1. Acute hypercapnic respiratory failure, resolved. This patient is to be on mechanical ventilation and she was extubated 3 days ago. She is doing much better. We had a chest x-ray today that showed an improvement of the left upper lobe infiltrate. 2. Metabolic encephalopathy. Resolved. 3. Left upper lung pneumonia continue with vancomycin and Zosyn. 4. Acute kidney injury. Resolved. 5. Hypertension. The blood pressure is still elevated. Will increase the dose of hydralazine from 25 to 50 p.o. t.i.d. I will monitor the blood pressure. 6. Nutritional status. This patient is tolerating p.o. Continue with a healthy diet. 7. Physical deconditioning. Physical therapy has been consulted. I need to discuss with this patient about the possibility of sending her to a rehab center versus home with home health. cc: Cj Cox MD
[2016-07-17] MEDS: XANAX PO SCH (20:34)
[2016-07-18] MEDS: XANAX PO PRN ×2 (00:53→20:25)
[2016-07-18] MEDS: ZOSYN 3.375 GM/NS 3.375 GM/50 ML IVPB IV SCH ×4 (00:53→19:19)
[2016-07-18] MEDS: DUONEB (A & A) INH SCH ×6 (03:16→23:10)
[2016-07-18] MEDS: PROTONIX IV SCH (05:23)
[2016-07-18] MEDS: SODIUM CHLORIDE 0.9% INJ SCH (05:24)
[2016-07-18 06:04] LABS: MANUAL DIFF NEEDED? NO
[2016-07-18 06:10] LABS: BASO% 0.1 % (0.0-0.8); HEMATOCRIT 37.6 % (37.0-47.0); HEMOGLOBIN 12.2 g/dL (12.0-16.0); IMM GRAN% 0.6 % (0.0-0.5); LYMPH# 8.17 X1000 (1.2-3.4); LYMPH% 49.9 % (20.5-51.1); MCH 29.9 PG (27-31); MCHC 32.4 g/dL (33-37); MCV 92.2 FL (81-99); MONO# 0.64 X1000 (0.11-0.59); MONO% 3.9 % (1.7-9.3); MPV 11.8 FL (7.4-10.4); NEUT% 45.5 % (42.2-75.2); PLT 147 X1000 (130-400); RBC 4.08 XMIL (4.2-5.4)
[2016-07-18 06:50] LABS: AGAP 9; BUN 19 mg/dL (8-22); CALCIUM 8.9 mg/dL (8.8-10.2); CHLORIDE 100 mmol/L (98-107); COSMO 285; POTASSIUM 4.2 mmol/L (3.5-5.1); SODIUM 141 mmol/L (136-145); TCO2 32 mmol/L (25-35)
[2016-07-18] MEDS: PRINIVIL PO SCH (08:37)
[2016-07-18] MEDS: CATAPRES PO SCH ×2 (08:37→20:25)
[2016-07-18] MEDS: NICODERM PATCH TD SCH (08:37)
[2016-07-18] MEDS: APRESOLINE PO SCH ×3 (08:37→18:15)
[2016-07-18] MEDS: MORPHINE IV PRN ×2 (08:41→21:01)
[2016-07-18] MEDS ORDERED: SOLU-MEDROL IV SCH (09:00)
[2016-07-18] MEDS ORDERED: LASIX IV ONE (11:46)
--- NOTE | 2016-07-18 13:16 | PROGRESS NOTE ---
DATE: 07/18/2016 SUBJECTIVE: This patient states that she is feeling better. She was extubated 4 days ago, but she has generalized weakness. The plan with her is to send this patient to a rehabilitation center. I talked to the patient about it today and she agreed with this. The delinquency prevention social worker is on board. OBJECTIVE: Vital Signs: Temperature 99.2 degrees, pulse 97, respiratory rate 20, blood pressure 166/89, O2 saturation 92% on 2L of nasal cannula. HEENT: Head normocephalic. No trauma. PERRLA. Neck: Supple. No JVD. No masses. Central trachea. Chest: Clear to auscultation. No wheezing. No rales. Decreased breath sounds at the bases. She is not using any accessory muscles or having work of breathing. Abdomen: Soft, nontender, nondistended. Obese. Extremities: No edema. No clubbing. No cyanosis. Neurological: The patient is alert and oriented x3. No focal neurological deficits. LABORATORY: WBC 16.3, hemoglobin 12.2, hematocrit 37.6, platelets 147,000. Sodium 141, potassium 4.2, chloride 100, bicarbonate 32, BUN 19, creatinine 0.6, glucose 126, calcium 8.9. ASSESSMENT AND PLAN: 1. Acute hypercapnic respiratory failure, resolved. This patient was extubated 4 days ago. She is doing much better. She had an x-ray yesterday that showed an improvement of the left upper lobe infiltrate. 2. Metabolic encephalopathy, resolved. 3. Left upper lung pneumonia. Continue with vancomycin and Zosyn. Today is day #7 and probably we will continue this treatment for 10 days. 4. Acute kidney injury, resolved. 5. Hypertension. The blood pressure is still elevated. Yesterday, I increased the dose of hydralazine from 25 to 50 and she is still on lisinopril and clonidine. I will monitor this patient for 1 more day to see how she does and probably I will readjust the medications tomorrow. 6. Nutritional status. This patient is tolerating p.o. Continue with healthy diet. 7. Physical deconditioning. Physical therapy has been consulted. I discussed the possibility of sending this patient to a rehabilitation center and she agreed with this plan. cc: Cj Cox MD
[2016-07-18] MEDS: VANCOMYCIN 2,500 MG in NS 500 ML IV SCH ×2 (13:29→14:06)
[2016-07-18] MEDS: XANAX PO SCH ×3 (13:32→23:51)
[2016-07-18] MEDS: PREDNISONE PO SCH (13:32)
[2016-07-19] MEDS: ZOSYN 3.375 GM/NS 3.375 GM/50 ML IVPB IV SCH ×2 (00:37→05:14)
[2016-07-19] MEDS: DUONEB (A & A) INH SCH ×3 (03:47→10:59)
[2016-07-19] MEDS: PROTONIX IV SCH (05:14)
[2016-07-19] MEDS: SODIUM CHLORIDE 0.9% INJ SCH (05:14)
[2016-07-19] MEDS: MORPHINE IV PRN (05:17)
[2016-07-19 06:13] LABS: MANUAL DIFF NEEDED? NO
[2016-07-19 06:19] LABS: BASO% 0.1 % (0.0-0.8); EOS# 0.01 X1000 (0.0-0.7); EOS% 0.1 % (0.0-10.0); HEMATOCRIT 38.6 % (37.0-47.0); HEMOGLOBIN 12.3 g/dL (12.0-16.0); IMM GRAN# 0.16 X1000 (0.0-0.04); IMM GRAN% 0.9 % (0.0-0.5); LYMPH# 8.93 X1000 (1.2-3.4); LYMPH% 48.3 % (20.5-51.1); MCH 29.6 PG (27-31); MCHC 31.9 g/dL (33-37); MCV 92.8 FL (81-99); MONO% 5.4 % (1.7-9.3); NEUT% 45.2 % (42.2-75.2); PLT 135 X1000 (130-400); RBC 4.16 XMIL (4.2-5.4)
[2016-07-19 06:41] LABS: HEMOGLOBIN A1C 6.5 % (4.8-6.0)
[2016-07-19 06:56] LABS: AGAP 9; BUN 24 mg/dL (8-22); CHLORIDE 97 mmol/L (98-107); COSMO 287; POTASSIUM 3.4 mmol/L (3.5-5.1); SODIUM 142 mmol/L (136-145); TCO2 36 mmol/L (25-35)
[2016-07-19] MEDS: APRESOLINE PO SCH (09:49)
[2016-07-19] MEDS: XANAX PO SCH (09:49)
[2016-07-19] MEDS: CATAPRES PO SCH (09:49)
[2016-07-19] MEDS: NICODERM PATCH TD SCH (09:49)
[2016-07-19] MEDS: PREDNISONE PO SCH (09:49)
[2016-07-19] MEDS: PRINIVIL PO SCH (09:50)
[2016-07-19 11:03] VITALS: BP 133/74
[2016-07-19] MEDS ORDERED: POTASSIUM CHLORIDE 40 MEQ/SWI 40 MEQ/100 ML IVPB IV ONE (12:46)
--- NOTE | 2016-07-19 19:12 | DISCHARGE SUMMARY ---
ADMISSION DATE: 07/11/2016 DISCHARGE DATE: 07/19/2016 PRIMARY CARE PHYSICIAN: Shantell Rodrigez. DISCHARGE DIAGNOSES: 1. Pneumonia resolved. 2. Acute respiratory failure resolved. 3. Hypertension. 4. Type 2 diabetes. 5. Morbid obesity. 6. Depression. 7. Tobacco abuse. DISCHARGE MEDICATIONS: 1. Paxil 20 mg p.o. daily. 2. Glipizide 10 mg b.i.d. 3. Buspirone 5 mg p.o. b.i.d. 4. Albuterol inhaler p.r.n. every 4-6 hours. 5. Prednisone 40 mg p.o. daily. 6. Levaquin 750 p.o. daily. 7. Lisinopril 20 mg p.o. daily. 8. Hydralazine 50 mg p.o. t.i.d. 9. Catapres 0.1 mg b.i.d. CONSULTATIONS: 1. Environmental Educator was consulted for acute respiratory failure. is following the patient. The patient was intubated but then extubated and has been doing well with extubation for the past 5 days. 2. Nephrology was consulted for acute kidney injury. Dr. Stallworth has been seeing the patient and adjusting her electrolytes, her fluid. Her creatinine function has normalized. DISCHARGE LABORATORY: White count 18, hemoglobin 12.3, hematocrit of 38.6, platelets of 135,000. Chemistry: Sodium 140, potassium 3.4, chloride 97, bicarb 36. BUN 24, creatinine 0.6, and glucose of 93. Microbiology has remained negative thus far. HOSPITAL COURSE: The patient is a 50-year-old white female with a history of COPD and possibly leukemia admitted to the hospital for altered mental status and was found to have an acute respiratory failure due to hypercapnia. Her CO2 was 53 and her oxygen was 83, as well as acute kidney injury. The patient was admitted to [facility] and subsequently was transferred to our hospital. She was intubated. We continued to treat the patient for COPD exacerbation and pneumonia of the left upper lobe. Her pneumonia has resolved. The patient has been on vancomycin and Zosyn. Cultures have remained negative thus far. Metabolic encephalopathy could be a combination of hypoxia and hypercapnia along with acute renal failure, all of which have resolved. The patient is mentating well. Has no issue as far as the pneumonia is concerned. Repeat chest x-ray has resolved. We discontinued vancomycin and Zosyn and put her on Levaquin and we will discharge the patient home today. The patient was found to be very hypertensive in the hospital. We will started the patient on clonidine, hydralazine and lisinopril. She will continue her antibiotics for another 5 days. PHYSICAL EXAM: Vital Signs on Discharge: BP is 133/74, pulse of 72, respirations 20, temperature 98.2 degrees, sat 100% on nasal cannula. General Appearance: Obese, white female in no acute distress. HEENT: Anicteric. Clear conjunctivae. Neck: Supple. No JVD. No bruit. Cardiovascular: S1, S2. Normal rate and rhythm. No murmur, rubs, or gallops. Pulmonary: Clear to auscultation bilaterally. GI: Soft, nontender, nondistended. Normoactive bowel sounds. Musculoskeletal: No clubbing, cyanosis, or edema. PLAN: We will discharge the patient home. CONDITION: Stable and improving. ACTIVITY: As tolerated. FOLLOW UP: The patient needs to follow up with her PCP, Shantell Rodrigez in 5-7 days. TIME SPENT: Total time discharging this patient 35 minutes. cc: ROSA Nguyen
--- NOTE | 2016-07-19 22:01 | DISCHARGE SUMMARY ---
ADMISSION DATE: 07/11/2016 DISCHARGE DATE: 07/19/2016 ADMISSION DIAGNOSES: 1. Acute hypoxic and hypercapnic respiratory failure. 2. Toxic metabolic encephalopathy. 3. Aspiration pneumonia. 4. Urinary tract infection. 5. Acute kidney injury. DISCHARGE DIAGNOSES: 1. Acute hypoxic and hypercapnic respiratory failure. 2. Toxic metabolic encephalopathy. 3. Aspiration pneumonia. 4. Urinary tract infection. 5. Acute kidney injury. 6. Chronic obstructive pulmonary disease exacerbation. CONSULTATIONS: Dr. Gage Laboy with pulmonary, Dr. Cornel Stallworth with Nephrology. DIAGNOSTIC PROCEDURES AND FINDINGS: Head CT done on 07/11/[address] Chest x- ray on 07/11/2016 negative for acute process. Abdomen and pelvis CT on shows no renal stones or hydronephrosis, no bowel obstruction, normal appendix, distended gallbladder but no adjacent inflammation or calcified stones. Chest x-ray 07/12/2016 shows endotracheal tube in good position. Renal ultrasound on 07/12/2016 shows normal renal ultrasound. Abdominal ultrasound on 07/12/2016 shows distended gallbladder otherwise negative abdominal ultrasound. CT of the chest on 07/12/2016 shows scattered small peripheral infiltrates independent atelectasis primarily in the right lower lob, mild emphysematous changes at the right upper lobe. Chest x-ray done on 07/13/2016 shows tip of PICC line in distal superior vena cava no other acute changes. Chest x-ray in 2016 shows stable chest without acute changes. Chest x- ray on 07/15/2016 shows persistent left upper lobe infiltrate suggesting pneumonia, ET tube has been removed. Chest x-ray 07/16/2016 shows improvement of the already mild left upper lobe infiltrate stable chest otherwise, chest x-ray done 07/17/2016 shows essential resolution of very mild left upper lobe infiltrate, the chest is stable otherwise. HOSPITAL COURSE: Mrs. Leon is 50-year-old female with a history of COPD and CLL who presented to [facility] with erratic behavior at which time she was given Benadryl and Ativan, CT of the head did not show anything acute as did her CT abdomen and pelvis. An ABG was done and did show she had respiratory acidosis and she eventually became quite combative requiring sedation to the point that she had to be placed on the ventilator. She was intubated and sent [facility]. She also had a creatinine on arrival of 2.7. We consulted Pulmonary Critical Care, nephrology added broad-spectrum antibiotics and place the patient in the ICU with fluids and close monitoring. Renal ultrasound was negative for acute process. Dr. Stallworth did see the patient and felt that her BRANDON was secondary to volume depletion and would improve with volume. Dr. Gage Laboy saw the patient as well and managed her ventilator and critical care aspects. With time, antibiotics and adequate treatment she was extubated. She was transferred to the floor where she continued to improve on a daily basis. All cultures that were obtained were ultimately found to be negative. Her mental status essentially resolved when she was extubated. We felt that her encephalopathy was possibly toxic secondary to opioid pain medications. Her labs have improved and she is at her neurologic baseline, creatinine is back to normal levels. She is now stable for discharge home. DISCHARGE MEDICATIONS: Albuterol 8.5 g inhaled every 4-6 hours as needed, BuSpar 5 mg b.i.d., clonidine 0.1 mg p.o. b.i.d., glipizide 10 mg b.i.d., hydralazine 50 mg p.o. t.i.d., Levaquin 750 mg p.o. daily for 5 days, lisinopril 20 mg daily, paroxetine 20 mg daily, prednisone dose pack as directed. DISCHARGE PHYSICAL EXAM: General: This is 50-year-old female lying in hospital bed. No acute distress. Neurologic: The patient is awake, alert, oriented. She follows commands without focal deficits. HEENT: Head is atraumatic and normocephalic. Pupils are equal, round, reactive to light. Oral mucosa is moist. Trachea is midline. No JVD. Chest: Diminished at the bases. Otherwise clear to auscultation bilaterally. CV: Regular rate and rhythm. S1-S2 is noted. No murmurs, gallops, clicks, rubs. GI: Soft, nondistended, nontender, bowel sounds are positive. Extremities: No edema, clubbing or cyanosis. Pulses are palpable bilaterally. DISCHARGE LAB DATA: WBC 18.47, hemoglobin 12.3, hematocrit 38.6, platelet count 135,000, PT 13.6, INR 1.01. Sodium 142, potassium 3.4, chloride 97, CO2 36, anion gap 9, BUN 24, creatinine 0.6, glucose is 93, calcium 9. DISCHARGE DIET: Diabetic. DISCHARGE ACTIVITY: Resume activity as tolerated. DISPOSITION AND DISCHARGE INSTRUCTIONS: Patient has been discharged home to self-care. She is to follow up with her PCP this week. She is to continue all medications as directed, we have educated her on the importance of nicotine cessation and have directed her toward nicotine cessation with nicotine patches if needed. She is to return to the ER or call 911 for all worsening complaints or concerns. All questions have been answered. DISCHARGE TIME: Is greater than 35 minutes. Dictated by ROSA Magana for Antony Franco Mari MD cc: Cornel Stallworth MD Addendum: I personally evaluated and examined the patient in conjunction to the FOR[employer]ODU[employer] GATH[employer]ER and agreed with his assessment and disposition. Breathing has much improved. Ambulated without any SOB. Lungs is clear MTDD
--- NOTE | 2016-08-08 19:19 | PROVIDER DOCUMENTATION ---
This chart was entered by Elizabeth Hernandes Scribe, acting as scribe for Nicolas Malik DO. HPI-General Adult - General Chief Complaint: Allergic Reaction Stated Complaint: PSYCH "NERVOUS BREAKDOWN" Time Seen by Provider: 07/11/16 18:26 Source: family Allergies/Adverse Reactions: Patient Allergies Allergy/AdvReac Type Severity Reaction Status Date / Time No Known Allergies Allergy Verified 04/21/16 08:25 Home Medications: Home Medication List Medication Instructions Recorded Confirmed Last Taken Type Albuterol Sulfate [Albuterol 8.5 gm IH Q4-6H PRN PRN #2 04/21/16 07/16/16 08:00 Rx Sulfate Hfa] [email or web address] Buspirone HCl [Buspar] 5 mg PO BID 04/21/16 07/16/16 04/21/16 20:00 History Paroxetine [Paxil] 20 mg PO DAILY 04/21/16 07/16/16 05/01/16 08:00 History Glipizide 10 mg PO BID 05/02/16 07/16/16 05/01/16 08:00 History Clonidine [Catapres] 0.1 mg PO BID #60 tablet 07/19/16 Unknown Rx Hydralazine [Apresoline] 50 mg PO TID #90 tablet 07/19/16 Unknown Rx LISINOpril [Prinivil] 20 mg PO DAILY #30 tablet 07/19/16 Unknown Rx Levofloxacin [Levaquin] 750 mg PO DAILY #5 tablet 07/19/16 Unknown Rx Prednisone 40 mg PO DAILY #5 tablet 07/19/16 Unknown Rx - History of Present Illness -Gen Adult Nature of Presenting Problems: PT IS A 50YOF PRESENTING TO THE ED C/O AMS. PTS FAMILY STATES SHE HAS BEEN ALTERED FOR ABOUT 3 DAYS NOW. PT TALKING "TALKING OUT OF HER HEAD" PT HAS A HISTORY OF LYMPHOMA AND CHRONIC HIGH WBC'S. PTS FAMILY STATES THAT SHE IS KNOWN TO TAKE ILLICIT DRUGS OFF THE STREETS FAR OPIATES, XANAX AND MARIJUANA. SHE IS A NON-COMPLIANT DM PT. ACCORDING TO THE FAMILY SHE HAS NOT SLEPT BUT A BOUT 3 HOURS IN THE PAST 3 DAYS. DAUGHTER BELIEVES THAT SHE HAS AN UNDIAGNOSED MENTAL HEALTH ISSUE FAR BI-POLAR OR/AND SCHIZOPHRENIA. PT IS VERY HYPOTENSION AT TIME OF EXAM AND ALTERED. NO OTHER COMPLAINTS NOTED AT THIS TIME Location of Pain/Injury: reports: none Pain Radiation: reports: no radiation Quality of Pain: reports: none Severity: reports: severe Onset/Duration: reports: 3 days ago Timing: reports: still present, getting worse Context/Activities at Onset: reports: light activity Modifying Factors: improves with: nothing Associated Symptoms: reports: anxiety, diaphoresis, loss of appetite, shortness of breath, trouble walking, other (AMS, POSSIBLE SEROTONIN SYNDROME). denies: back/neck pain, chest pain, EENT symptoms, nausea, pain with inspiration Similar Symptoms Previously?: No Recently seen or treated by another doctor?: No - Diabetes Related Context Context: reports: other (NON-COMPLIANT) Review of Systems - Adult - REVIEW OF SYSTEMS - ADULT Constitutional: reports: see HPI, chills, night sweats. denies: fever Eyes: reports: no symptoms reported Ears, Nose, Mouth & Throat: reports: no symptoms reported Cardiovascular: reports: see HPI, poor circulation, other (EXTREMELY HYPOTENSIVE ). denies: chest pain, irregular heart rate Respiratory: reports: see HPI, cough, dyspnea on exertion, shortness of breath. denies: wheezing Gastrointestinal: reports: no symptoms reported Genitourinary: reports: no symptoms reported Musculoskeletal: reports: see HPI, muscle aches, other (MUSCLE RIGIDITY). denies: bone pain Integumentary: reports: no symptoms reported Neurological: reports: see HPI, slurred speech, tremors. denies: ataxia, paresthesia Psychiatric: reports: see HPI, anxiety, alcohol/drug dependence (USES XANAX AND OPIATES OFF THE STREETS ILLEGALLY), insomnia. denies: anti-depressant use, suicidal thoughts Endocrine: reports: see HPI, excessive sweating, increased thirst. denies: cold intolerance, heat intolerance Hematologic/Lymphatic: reports: no symptoms reported Allergic/Immunologic: reports: no symptoms reported All Other Systems: Reviewed and Negative Past History - Adult - PAST MEDICAL HISTORY-ADULT Review of Records: reports: Old Records Reviewed, Nursing Assessment Review, Medications Reviewed, Social history reviewed & non-contributory. Major Childhood Illnesses: reports: denies history Cardiovascular: reports: denies history Respiratory: reports: COPD Gastrointestinal: reports: denies history Obstetrical/Gynecological: reports: denies history Genitourinary: reports: denies history Musculoskeletal: reports: denies history Neurological: reports: denies history Psychiatric: reports: anxiety Endocrine/Immune: reports: Diabetes Other Conditions: reports: denies history - PRIOR SURGERIES/PROCEDURES Surgical/Procedure History: reports: BTL - IMMUNIZATION STATUS Childhood Immunizations: See Nurse Assessment Flu Vaccine: See Nurse Assessment - FAMILY HISTORY Family History: reviewed, not pertinent - SOCIAL HISTORY Smoking: cigarettes, greater than 1 pack/day Provider spent 3-5 mins advising pt. on dangers of tobacco.: Discussed manners to quit use, and f/u contacts for add'l counseling. Substance Use: marijuana, benzodiazepines, barbituates, opiates Alcohol Use Frequency: never Living Situation: family Physical Exam-General - PHYSICAL EXAM-ADULT Initial Vital Signs Reviewed: Yes - CONSTITUTIONAL General Appearance: severe distress, obese, anxious, obtunded, combative - EYES Eyes: pink conjunctivae, FUN, sunken eyes - HEAD, EARS, NOSE, MOUTH & THROAT HENMT: normocephalic/atraumatic, moist mucous membranes, normal ENT inspection, TMs normal, pharynx normal - NECK Neck: non-tender, full range of motion, supple, normal inspection - RESPIRATORY Respiratory: chest non-tender, lungs clear, no pleuratic chest pain, respiratory distress, rhonchi, increased rate. negative: normal breath sounds - CARDIOVASCULAR Cardiovascular: no edema, no gallop, no JVD, no murmur, tachycardia, other ( EXTREMELY HYPOTENSIVE, DOWN TO 54/23) - GASTROINTESTINAL (ABDOMEN) Abdominal Exam: normal bowel sounds, non tender, soft, no organomegaly, no pulsatile mass - LYMPHATIC Lymphatic: no adenopathy - MUSCULOSKELETAL Back Exam: normal inspection, no CVA tenderness, no vertebral tenderness Extremity: normal range of motion, non-tender, no pedal edema, no calf tenderness, normal capillary refill, pelvis stable, other (SOME RIGIDITY). negative: normal gait, normal inspection - SKIN Integumentary: normal turgor, diaphoresis, pallor - NEUROLOGIC Neurologic: abnormal cerebellar tests, abnormal adjunct instructor in economics II-XII, abnormal gait - PSYCHIATRIC Psych/Mental Status: disoriented x 3, anxious, disheveled, paranoid Progress - PLAN OF CARE/RESULTS Progress/Plan/Lab Results: Vital Signs - 8 hr 07/11/16 17:48 07/11/16 18:00 07/11/16 18:03 Temperature 97.3 F L Pulse Rate 97 H 79 Respiratory Rate 26 H 19 Blood Pressure 104/47 65/58 O2 Sat by Pulse Oximetry 92 L 95 07/11/16 18:19 07/11/16 18:30 07/11/16 18:44 Temperature Pulse Rate 80 80 89 Respiratory Rate 20 22 20 Blood Pressure 59/31 75/30 101/57 O2 Sat by Pulse Oximetry 94 L 96 94 L Laboratory Results - last 24 hr 07/11/16 07/11/16 07/11/16 17:44 18:25 18:25 WBC 23.63 H RBC 4.28 Hgb 12.6 Hct 39.2 MCV 91.6 MCH 29.4 MCHC 32.1 L RDW Std Deviation 14.8 H Plt Count 191 MPV 11.3 H Immature Gran % (Auto) 0.3 Neut % (Auto) 47.1 Lymph % (Auto) 47.0 Lane % (Auto) 5.5 Eos % (Auto) 0.0 Baso % (Auto) 0.1 Immature Gran # (Auto) 0.07 H Neut # (Auto) 11.12 H Lymph # (Auto) 11.11 H Lane # (Auto) 1.29 H Eos # (Auto) 0.01 Baso # (Auto) 0.03 Sodium 142 Potassium 4.2 Chloride 104 Carbon Dioxide 18 L Anion Gap 20 BUN 41 H Creatinine 2.7 H Estimated GFR/1.73 m2 19 BUN/Creatinine Ratio 15 Glucose 113 H POC Glucose 97 Calculated Osmolality 294 Calcium 9.2 Total Bilirubin 0.50 AST 43 H ALT 31 Alkaline Phosphatase 83 Total Protein 6.7 Albumin 3.9 Globulin 3.0 Albumin/Globulin Ratio 1.0 Orders Category Date Time Status Cardiac Monitoring DIRECTED Care 07/11/16 18:41 Active HEAD W/O CONTRAST [CT] Stat Exams 07/11/16 18:42 Ordered ABG [RESP] Routine Lab 07/11/16 18:43 Ordered ALCOHOL BLOOD Stat Lab 07/11/16 18:41 Ordered AMMONIA [CHEM] Stat Lab 07/11/16 18:42 Ordered CBC WITH DIFF [HEME] Stat Lab 07/11/16 18:25 Results CK PROFILE [SP CHEM] Stat Lab 07/11/16 18:41 Ordered COMPREHENSIVE METABOLIC PANEL [CHEM] Stat Lab 07/11/16 18:25 [address] D-D[address] [COAG] Stat Lab 07/11/16 18:41 Ordered FREE T4 Stat Lab 07/11/16 18:41 Ordered LACTATE, PLASMA [CHEM] Stat Lab 07/11/16 18:25 Received MAGNESIUM [CHEM] Stat Lab 07/11/16 18:41 Ordered PRO B-NATRIURETIC PEPTIDE Stat Lab 07/11/16 18:[address] Or[address]IME WITH INR PL [COAG] Stat Lab 07/11/16 18:[address] [COAG] Stat Lab 07/11/16 18:41 Ordered TROPONIN T Stat Lab 07/11/16 18:41 Ordered TSH Stat Lab 07/11/16 18:25 Received TSH Stat Lab 07/11/16 18:[address] W/POSS RFLX CULT [URINALYSIS] Stat Lab 07/11/16 17:50 Uncollected URINE DRUG SCREEN PL Stat Lab 07/11/16 17:50 Uncollected VITAMIN B12 Stat Lab 07/11/16 18:41 Ordered 0.9% Sodium Chloride Inj [Ns] 1,000 ml Med 07/11/16 18:23 Active IV 999 mls/hr 0.9% Sodium Chloride Inj [Ns] 1,000 ml Med 07/11/16 18:23 Active IV 999 mls/hr 0.9% Sodium Chloride Inj [Ns] 1,000 ml Med 07/11/16 18:43 Active IV 999 mls/hr 0.9% Sodium Chloride Inj [Ns] 2,000 ml Med 07/11/16 18:07 Discontinued .ROUTE As Directed Dextrose 5%-0.45% NaCl Inj [D5 1/2 Ns] 250 ml Med 07/11/16 18:30 Active Norepinephrine [Levophed] 8 mg IV 2 mcg/min Diphenhydramine [Benadryl] Med 07/11/16 17:50 Discontinued 25 mg IV NOW ONE Diphenhydramine [Benadryl] Med 07/11/16 17:50 Discontinued 50 mg .ROUTE .STK-MED ONE Lorazepam [Ativan] Med 07/11/16 17:59 Discontinued 2 mg .ROUTE .STK-MED ONE Lorazepam [Ativan] Med 07/11/16 17:58 Discontinued 2 mg IV NOW ONE Norepinephrine [Levophed] Med 07/11/16 18:27 Discontinued 8 mg .ROUTE .STK-MED ONE 0120 PT BECAME EXTREMELY ALTERED AND UNABLE TO FOLLOW COMMANDS. PT WAS A DANGER TO HERSELF AND STAFF SO DR MALIK CHOOSE TO RSI PT WITH 20MG ETOMIDATE AND 100MG SUCC. WHILE MEDICATIONS WERE DRAWN AND RESPIRATORY MAKING IT TO BEDSIDE PT WAS RESTRAINED WITH 4-POINT RESTRAINTS FOR HER SAFETY AND THE SAFETY OF STAFF. PT HAS AN ICU BED AT [facility] BUT PTS PCP WANTS PT AT [facility] SO ARRANGEMENTS ARE BEING MADE TO TRANSFER PT. AT THIS TIME PT IS INTUBATED WITH 8.0 ET-TUBE AT 22 AT THE RIGHT LIP WITH GOOD COLORMETERIC CHANGE AND BILATERAL BREATH SOUNDS HEARD. XRAY WILL VERIFY TUBE PLACEMENT Result Diagrams: 07/19/16 05:51 07/19/16 05:51 Procedures - INTUBATION Time of Intubation: 01:30 Intubation Method: orotracheal Equipment: ETT Tube Size (cm): 8.0 Pretreated with 100% Oxygen?: Yes Breath Sounds after Intubation: equal ETT Primary Tube Confirmation: Capnometry CO2 Change, Direct Visualization, Chest Rise and Fall, Tube placement verified on XRAY Intubation Complications: no complications Vent Settings: See Respiratory Therapy Notes Departure - Departure Time of Disposition Decision: 01:37 DIAGNOSIS: Sepsis Disposition: ADMITTED INPATIENT 09 Certified Medical Emergency: Emergent Condition: Fair - Critical Care Note This patient required my direct & personal management of CC.: Yes Total Time (mins): 60 (DR MALIK) Critical Care Statement: This patient required my direct personal management to treat or rule out processes, the absence of which, could potentiallly result in sudden, clinically significant life or limb threatening deterioration. This chart was documented by the indicated scribe, (Elizabeth Hernandes Scribe) and accurately reflects the services I performed and decisions made by me, Nicolas Malik DO, as attested by the provider's signature.
== END 2016-07-19 14:57 | disposition home or self-care (01) ==
LOC: P.ED 17:36 → SUATTDRO 21:51 → P.ICU 21:51 → ICU 07-12 02:23 → 4N 07-16 18:31
PROVIDERS: ATTEND Internal Medicine

== ENCOUNTER 2016-08-22 13:08 | Inpatient (IN) ==
--- NOTE | 2016-08-22 13:38 | EKG Report ---
Test Performed on : 08/22/2016 1:32:14 PM Test Reason : cp Blood Pressure : / mmHG Vent. Rate : 103 BPM Atrial Rate : 103 BPM P-R Int : 124 ms QRS Dur : 088 ms QT Int : 362 ms P-R-T Axes : 082 040 077 degrees QTc Int : 474 ms Sinus tachycardia. Biatrial enlargement Abnormal ECG When compared with ECG of 21-AUG-2016 15:13, No significant change was found Unconfirmed Result
--- NOTE | 2016-08-22 14:25 | ED EKG INTERP ---
This chart was entered by Btety Newton Scribe, acting as scribe for Tj Miranda MD. EKG Interpretation - EKG Time of EKG reading by physician:: 13:32 EKG Read and Signed by:: Tj Miranda EKG Interpretation (*Must complete 3 of following elements*): Abnormal Rate: 103 Rhythm: sinus tachycardia Comments: biatrial enlargement This chart was documented by the indicated scribe, (Betty Newton Scribe) and accurately reflects the services I performed and decisions made by me, Tj Miranda MD, as attested by the provider's signature.
[2016-08-22 15:37] LABS: BLOOD TYPE ARTERIAL; SAMPLE BLOOD
[2016-08-22 15:38] LABS: BE 12.4 mmoll (-3.0-3.0); DRAW SITE R BRACHIAL; METHB 1.3 % (0.0-1.5); PO2(98.6) 55 mmHg (60-100); SAO2 93.1 % (95.0-100.0); THB 15.6 g/dL (11.5-17.4); pH(98.6) 7.47 (7.35-7.45)
--- NOTE | 2016-08-22 15:41 | Diag Imaging Result Doc PS360 ---
US ABDOMEN-COMPLETE - 08/22/2016 INDICATION: RUQ pain COMPARISON: 07/12/2016 FINDINGS: The liver appears normal in size and echotexture. The IVC and aorta appear normal. The pancreas is unremarkable. The gallbladder is free of stones and sludge has a normal caliber wall. Common bile duct measures 6 mm. The portal vein is patent. Spleen is unremarkable. The kidneys appear normal bilaterally. There is no hydronephrosis. IMPRESSION: No acute abnormalities are identified. Electronically signed by Luz Barker 08/22/2016 3:39 PM
[2016-08-22 15:53] LABS: AGAP 12; ALBUMIN 3.8 g/dL (3.5-5.0); ALKALINE PHOSPHATASE 85 U/L (32-104); AMYLASE 31 U/L (20-200); BUN 33 mg/dL (8-22); CALCIUM 8.6 mg/dL (8.8-10.2); CHLORIDE 95 mmol/L (98-107); COSMO 283; GOT 42 U/L (10-30); GPT 38 U/L (10-36); LIPASE 26 U/L (13-60); POTASSIUM 3.1 mmol/L (3.5-5.1); SODIUM 138 mmol/L (136-145); TCO2 31 mmol/L (25-35); TOTAL PROTEIN 7.2 g/dL (6.3-8.3)
[2016-08-22 15:55] LABS: PCO2(98.6) 53 mmHg (35-45)
[2016-08-22 15:56] LABS: ALLEN TEST NO; MODALITY ROOM AIR
[2016-08-22 15:59] LABS: BASO% 0.1 % (0.0-0.8); HEMATOCRIT 47.1 % (37.0-47.0); HEMOGLOBIN 14.6 g/dL (12.0-16.0); IMM GRAN# 0.14 X1000 (0.0-0.04); IMM GRAN% 0.4 % (0.0-0.5); LYMPH# 20.81 X1000 (1.2-3.4); LYMPH% 61.6 % (20.5-51.1); MANUAL DIFF NEEDED? NO; MCV 93.5 FL (81-99); MONO# 1.84 X1000 (0.11-0.59); MONO% 5.4 % (1.7-9.3); MPV 11.9 FL (7.4-10.4); NEUT% 32.5 % (42.2-75.2); PLT 243 X1000 (130-400); RBC 5.04 XMIL (4.2-5.4)
--- NOTE | 2016-08-22 16:10 | Diag Imaging Result Doc PS360 ---
EXAM: CHEST-2 VIEWS HISTORY: cough TECHNIQUE: PA and Lateral chest x-ray COMPARISON: 08/21/2016 FINDINGS: The cardiomediastinal silhouette is within normal limits. The pulmonary vasculature is not congested. No infiltrate, effusion, or pneumothorax is appreciated. There is a calcified granuloma left base. There is a pectus excavatum deformity. IMPRESSION: No acute cardiopulmonary abnormality is identified. Electronically signed by Luz Barker 08/22/2016 4:08 PM
[2016-08-22 16:19] LABS: BILIRUBIN URINE 1+ (NEGATIVE); BLOOD URINE 2+ (NEGATIVE); CLARITY HAZY (CLEAR); COLOR DARK YELLOW; GLUCOSE URINE NEGATIVE (NEGATIVE); URINE SOURCE CLEAN CATCH
[2016-08-22 16:20] LABS: LEUKOCYTES URINE TRACE (NEGATIVE); NITRITE URINE NEGATIVE (NEGATIVE); PH URINE 6.5; PROTEIN URINE 1+(30 mg/dL) mg/dL (NEGATIVE); UROBILINOGEN URINE 4+(12 mg/dL)
[2016-08-22 16:21] LABS: URINE EPITHELIAL CELLS >10 /HPF (<10)
[2016-08-22 16:22] LABS: URINE CULTURE PL NEEDED? YES; URINE RBC <10 /HPF (<10); URINE WBC <10 /HPF (<10)
--- NOTE | 2016-08-22 16:39 | PROVIDER DOCUMENTATION ---
This chart was entered by Betty Newton Scribe, acting as scribe for Tj Miranda MD. HPI-General Adult - General Chief Complaint: Return/Recheck Stated Complaint: VOMITING/CHEST PAIN Time Seen by Provider: 08/22/16 14:16 Source: patient Allergies/Adverse Reactions: Patient Allergies Allergy/AdvReac Type Severity Reaction Status Date / Time No Known Allergies Allergy Verified 08/21/16 13:48 Home Medications: Home Medication List Medication Instructions Recorded Confirmed Last Taken Type Albuterol Sulfate [Albuterol 8.5 gm IH Q4-6H PRN PRN #2 04/21/16 08/21/16 08:00 Rx Sulfate Hfa] [email or web address] Buspirone HCl [Buspar] 5 mg PO BID 04/21/16 08/21/16 04/21/16 20:00 History Paroxetine [Paxil] 20 mg PO DAILY 04/21/16 08/21/16 05/01/16 08:00 History Glipizide 10 mg PO BID 05/02/16 08/21/16 05/01/16 08:00 History Hydralazine [Apresoline] 50 mg PO TID #90 tablet 07/19/16 08/21/16 Unknown Rx LISINOpril [Prinivil] 20 mg PO DAILY #30 tablet 07/19/16 08/21/16 Unknown Rx Alprazolam [Xanax] 0.25 mg PO BID 08/21/16 08/21/16 Unknown History Estradiol/Norethindrone Acet 1 each PO DAILY 08/21/16 08/21/16 Unknown History [Estradiol-Noreth 0.5-0.1 mg Tb] Ondansetron [Zofran] 8 mg PO Q6HR #12 tablet 08/21/16 Unknown Rx Tizanidine HCl [Zanaflex] 4 mg PO BID 08/21/16 08/21/16 Unknown History - History of Present Illness -Gen Adult Nature of Presenting Problems: Pt is 50 y/o F presents to the ED with N and V. Pt states being in the ED yesterday. Pt states N and V started 3 days ago. Pt states hx of CLL. PT denies abdominal pain. Location of Pain/Injury: reports: generalized Pain Radiation: reports: no radiation Quality of Pain: reports: aching Severity: reports: mild Onset/Duration: reports: 3 days ago Timing: reports: still present Context/Activities at Onset: reports: light activity Modifying Factors: improves with: nothing Associated Symptoms: reports: cough, muscle aches, nausea, vomiting. denies: anxiety, arm pain, back/neck pain, chest pain, constipation, diaphoresis, diarrhea, dizziness, EENT symptoms, fatigue, fever/chills, genitourinary problems, headaches, heartburn, joint pain, loss of appetite, malaise, sinus congestion/drainage, rash, seizure, shortness of breath, sensory/motor loss, pain with inspiration, swelling/mass in abdomen, syncope, weakness, trouble walking Similar Symptoms Previously?: Yes Recently seen or treated by another doctor?: Yes Review of Systems - Adult - REVIEW OF SYSTEMS - ADULT Constitutional: denies: chills, fever Eyes: denies: blurred vision, double vision Ears, Nose, Mouth & Throat: denies: ear pain, nose pain, throat pain Cardiovascular: reports: irregular heart rate (tachy). denies: chest pain, heart murmur Respiratory: reports: cough. denies: shortness of breath, wheezing Gastrointestinal: reports: nausea, vomiting. denies: abdominal pain, diarrhea Genitourinary: denies: dysuria, hematuria Musculoskeletal: reports: muscle aches. denies: bone pain, joint pain, neck pain Integumentary: denies: hives, itching, rash Neurological: denies: dizziness/vertigo, headache/migraines, seizure, syncope Psychiatric: reports: no symptoms reported Endocrine: reports: no symptoms reported Hematologic/Lymphatic: reports: no symptoms reported Allergic/Immunologic: reports: no symptoms reported All Other Systems: Reviewed and Negative Past History - Adult - PAST MEDICAL HISTORY-ADULT Review of Records: reports: Nursing Assessment Review, Medications Reviewed, Social history reviewed & non-contributory. Major Childhood Illnesses: reports: denies history Cardiovascular: reports: denies history Respiratory: reports: COPD Gastrointestinal: reports: denies history Obstetrical/Gynecological: reports: denies history Genitourinary: reports: denies history Musculoskeletal: reports: denies history Neurological: reports: denies history Psychiatric: reports: anxiety Endocrine/Immune: reports: Diabetes Other Conditions: reports: denies history - PRIOR SURGERIES/PROCEDURES Surgical/Procedure History: reports: BTL - IMMUNIZATION STATUS Childhood Immunizations: See Nurse Assessment Flu Vaccine: See Nurse Assessment - FAMILY HISTORY Family History: reviewed, not pertinent - SOCIAL HISTORY Smoking: cigarettes, greater than 1 pack/day Provider spent 3-5 mins advising pt. on dangers of tobacco.: Discussed manners to quit use, and f/u contacts for add'l counseling. Substance Use: denies Living Situation: family Physical Exam-General - PHYSICAL EXAM-ADULT Initial Vital Signs Reviewed: Yes - CONSTITUTIONAL General Appearance: appears well, alert, no apparent distress - EYES Eyes: PERRL/EOMI, pink conjunctivae - HEAD, EARS, NOSE, MOUTH & THROAT HENMT: normocephalic/atraumatic, moist mucous membranes, normal ENT inspection - NECK Neck: non-tender, full range of motion, supple, normal inspection - RESPIRATORY Respiratory: chest non-tender, lungs clear, normal breath sounds, increased rate - CARDIOVASCULAR Cardiovascular: normal peripheral pulses, tachycardia - GASTROINTESTINAL (ABDOMEN) Abdominal Exam: normal bowel sounds, soft, tenderness (RUQ and LUQ) - LYMPHATIC Lymphatic: no adenopathy - MUSCULOSKELETAL Back Exam: normal inspection, no vertebral tenderness, CVA tenderness (bilateral ) Extremity: normal range of motion, non-tender, normal gait, normal inspection - SKIN Integumentary: normal color, normal turgor, diaphoresis - NEUROLOGIC Neurologic: grossly normal - PSYCHIATRIC Psych/Mental Status: normal mood/affect, oriented x 3 Progress - PLAN OF CARE/RESULTS Progress/Plan/Lab Results: Vital Signs - 8 hr 08/22/16 13:13 Temperature 98 F Pulse Rate 113 H Respiratory Rate 22 Blood Pressure 117/88 O2 Sat by Pulse Oximetry 96 Orders Category Date Time Status EKG [EKG] Stat Ther 08/22/16 13:16 Draft Result Diagrams: 08/22/16 15:29 08/22/16 15:29 - ULTRASOUND (By Radiology) 1 US Study: Abdomen Impression: Normal US Results: no acute abnormalities are identified - CONSULTS/PCP/HOSPITALIST Notification #1 *Consult/PCP/Hospitalist*: Dr. Parada Time Discussed: 16:04 Reason/Comments: Dr. Miranda consults with Dr. Parada about Pt Consult Disposition: Admit Departure - Departure Time of Disposition Decision: 16:10 DIAGNOSIS: CLL (chronic lymphocytic leukemia) COPD (chronic obstructive pulmonary disease) Qualifiers: COPD type: unspecified COPD Qualified Code(s): J44.9 - Chronic obstructive pulmonary disease, unspecified Respiratory failure Qualifiers: Chronicity: unspecified Respiratory failure complication: unspecified whether with hypoxia or hypercapnia Qualified Code(s): J96.90 - Respiratory failure, unspecified, unspecified whether with hypoxia or hypercapnia Disposition: ADMITTED INPATIENT 09 Certified Medical Emergency: Emergent Condition: Stable Additional Freetext Instructions: ED Follow Up Instructions: You have been treated by a care provider in the Emergency Department. These instructions are being provided to you so you can have an understanding of how to care for yourself upon discharge. Upon discharge from the Emergency Department, you are responsible for making arrangements for follow-up care by a physician of your choice. Take all prescribed medications as directed. Return to the Emergency Department immediately for any new or worsening symptoms. You may call the Physician Referral phone number at [phone] to obtain a list of Physicians who are taking new patients. Referrals and Follow-Ups: Shantell Rodrigez CRNP [Primary Care Provider] - - Critical Care Note This patient required my direct & personal management of CC.: No This chart was documented by the indicated scribe, (Betty Newton Scribe) and accurately reflects the services I performed and decisions made by me, Tj Miranda MD, as attested by the provider's signature.
[2016-08-22] MEDS ORDERED: KLOR-CON PO ONE (17:37)
--- NOTE | 2016-08-22 18:10 | HISTORY AND PHYSICAL ---
PRIMARY CARE PHYSICIAN: ROSA Nguyen. CHIEF COMPLAINT: Nausea and vomiting for 3 days. HISTORY OF PRESENTING ILLNESS: This is a 50-year-old female who presents to [facility] ER with complaints of nausea and vomiting for 3 days. States she was seen in the ER yesterday for the same thing. She is notably short of breath. Almost looks like a guppie type of breathing. O2 saturation on room air is 96%. She has faint wheezing but mostly decreased breath sounds throughout entire posterior lung mg. A chest x-ray that showed no acute cardiopulmonary abnormality identified. We did an abdomen ultrasound that showed no acute abnormalities identified. She had an abdomen x-ray yesterday on 2016 that showed a nonspecific bowel gas pattern and no evidence of an acute cardiopulmonary disease but she is being admitted for an exacerbation of COPD for further evaluation and treatment. PAST MEDICAL HISTORY: COPD, CLL and diabetes type 2, hypertension and depression. PAST SURGICAL HISTORY: Bilateral tubal ligation. FAMILY HISTORY: Noncontributory. SOCIAL HISTORY: She currently lives with family. Is a pack a day smoker and denies any alcohol or illicit drug use. ALLERGIES: She has no known drug allergies. HOME MEDICATIONS: A current list will be obtained and we will restart those as appropriate. REVIEW OF SYSTEMS: She denied any fever, chills, blurred vision, dizziness, chest pain. She has had a nonproductive cough, shortness of breath, wheezing, nausea, vomiting. Denied abdominal pain, constipation, diarrhea, burning or hurting with urination. PHYSICAL EXAMINATION: VITAL SIGNS: Temperature of 98 degrees, pulse of 113, respirations 22, blood pressure 117/88, saturating 96% on room air. GENERAL: This is a 50-year-old female who is sitting on the side of the bed and answers questions appropriately. HEENT: Normocephalic and atraumatic. Pupils are equal, round, reactive to light. Extraocular movements are intact. Oropharynx and nares are clear. NECK: Supple. LUNGS: With scattered wheezes throughout entire posterior lung mg but mostly decreased breath sounds with some guppie type breathing but again is saturating 96% on room air. HEART: With regular rate and rhythm. No murmurs, rubs, or gallops. ABDOMEN: Soft, nontender, nondistended. Bowel sounds are present x4 quadrants. EXTREMITIES: There is no clubbing, cyanosis, or edema. NEUROLOGICAL: The cranial nerves 2-12 appear grossly intact. ASSESSMENT: 1. An acute chronic obstructive pulmonary disease exacerbation. 2. Hypokalemia. 3. CLL. 4. Tobacco abuse. LABORATORY DATA: White blood cell count of 33.78, hemoglobin of 14.6, hematocrit 47.1, platelets of 243,000. ABG with a pH of 7.47, pCO2 of 53, PO2 55, bicarb 34.3. Sodium of 138, potassium 3.1, chloride 95, CO2 31, BUN of 33, creatinine 0.8, glucose of 96. Urinalysis canceled. Abdomen ultrasound showed no acute abnormalities identified. A chest x-ray showed no acute cardiopulmonary abnormality identified. EKG showed sinus tachycardia at 103. PLAN: She will be admitted to the medical unit at [facility]. Placed on telemetry. O2 per protocol. Vitals q.4h. Incentive spirometry. Diabetic diet. Will obtain a list of her home medications and restart as appropriate. Place on Rocephin 1 gram IV q.24, Solu-Medrol 80 mg IV q.8. We will place on pattern blood sugars with a high sliding scale insulin due to the steroids and we will recheck a CBC and a CMP in the a.m. We will supplement her potassium with 40 mEq p.o. x1. Dictated by ROSA Felix for Lc Parada MD cc: ROSA Felix MD pt examined, agree with above, will need to set up with home nebulizer and follow APENOT MTDD
[2016-08-22] MEDS: DUONEB (A & A) INH SCH ×2 (19:20→23:05)
[2016-08-22] MEDS: SOLU-MEDROL IV SCH (20:27)
[2016-08-22] MEDS: LOVENOX SUBQ SCH (20:29)
[2016-08-22] MEDS: ROCEPHIN 1 GM/NS 1 GM/50 ML IVPB IV SCH (20:29)
[2016-08-22] MEDS: TYLENOL PO PRN (20:43)
[2016-08-22] MEDS: ZOFRAN IV PRN (20:43)
[2016-08-22] MEDS: XANAX PO SCH (22:00)
[2016-08-22] MEDS: BUSPAR PO SCH (22:00)
[2016-08-22] MEDS: HUMALOG DOSE (PARKWAY) SUBQ SCH (22:01)
[2016-08-22] MEDS: ZANAFLEX PO SCH (22:01)
[2016-08-22] MEDS: GLUCOTROL PO SCH (22:01)
[2016-08-23] MEDS: SOLU-MEDROL IV SCH ×3 (01:46→18:06)
[2016-08-23] MEDS: DUONEB (A & A) INH SCH ×6 (03:43→23:21)
[2016-08-23] MEDS: HUMALOG DOSE (PARKWAY) SUBQ SCH ×4 (06:15→20:29)
[2016-08-23 07:18] LABS: BASO% 0.1 % (0.0-0.8); HEMATOCRIT 47.5 % (37.0-47.0); HEMOGLOBIN 15.2 g/dL (12.0-16.0); IMM GRAN% 0.3 % (0.0-0.5); LYMPH# 17.45 X1000 (1.2-3.4); LYMPH% 55.9 % (20.5-51.1); MANUAL DIFF NEEDED? YES; MCH 29.9 PG (27-31); MCV 93.3 FL (81-99); MONO% 0.6 % (1.7-9.3); MPV 12.3 FL (7.4-10.4); NEUT% 43.1 % (42.2-75.2); PLT 192 X1000 (130-400); RBC 5.09 XMIL (4.2-5.4)
[2016-08-23 07:22] LABS: AGAP 11; ALKALINE PHOSPHATASE 89 U/L (32-104); AMYLASE 29 U/L (20-200); BUN 29 mg/dL (8-22); CALCIUM 9.1 mg/dL (8.8-10.2); CHLORIDE 95 mmol/L (98-107); COSMO 283; GOT 39 U/L (10-30); GPT 41 U/L (10-36); LIPASE 28 U/L (13-60); POTASSIUM 3.8 mmol/L (3.5-5.1); SODIUM 136 mmol/L (136-145); TCO2 30 mmol/L (25-35)
[2016-08-23 07:51] LABS: LYMPHS 44 % (21-51); MONO 1 % (1-9)
[2016-08-23] MEDS: BUSPAR PO SCH ×2 (08:21→20:27)
[2016-08-23] MEDS: ZANAFLEX PO SCH ×2 (08:21→20:28)
[2016-08-23] MEDS: PRINIVIL PO SCH (08:21)
[2016-08-23] MEDS: XANAX PO SCH ×2 (08:21→20:27)
[2016-08-23] MEDS: PAXIL PO SCH (08:21)
[2016-08-23] MEDS: APRESOLINE PO SCH ×3 (08:22→16:07)
[2016-08-23] MEDS: TYLENOL PO PRN ×2 (08:22→14:25)
[2016-08-23] MEDS: GLUCOTROL PO SCH ×2 (08:22→20:27)
[2016-08-23] MEDS: PATIENT'S OWN MED PO SCH (08:25)
[2016-08-23] MEDS: ZOFRAN IV PRN (11:17)
[2016-08-23] MEDS ORDERED: MORPHINE IV ONE (15:43)
[2016-08-23] MEDS ORDERED: MBX SOLUTION MT ONE (16:49)
--- NOTE | 2016-08-23 16:50 | PROGRESS NOTE ---
DATE: 08/23/2016 SUBJECTIVE: Patient is sitting up in bed. States she has had some abdominal pain from her nausea and vomiting yesterday but none today with the nausea, vomiting, and requests a nicotine patch for her tobacco abuse. OBJECTIVE: Vital Signs: Temperature 98.9 degrees, pulse 103, respirations 22, blood pressure 126/68, saturating 100% on 2 L via nasal cannula. General: This is a 50-year- old female sitting up in the bed, answers questions appropriately. HEENT: Normocephalic and atraumatic. Pupils are equal, round, reactive to light. The extraocular movements are intact. The oropharynx and nares are clear. Neck: Supple. Lungs: With very minimal scattered wheezing but much improved. Equal lung expansion and chest wall movement. Heart: With regular rate and rhythm. No murmurs, rubs, or gallops. Abdomen: Soft, nontender, nondistended. Bowel sounds are present x4 quadrants. Extremities: No clubbing, cyanosis, or edema. Patient does have an area underneath her right axilla that is firm and hard, states that it has been there for approximately 2 months. Also has another area coming up right below it that is minimally red and hard, almost feels like a little small abscess in her right axilla. Neurological: The cranial nerves 2-12 are grossly intact. LABORATORY DATA: Showed a white blood cell count of 31.23, a hemoglobin of 15.2 , hematocrit 47.5, platelets 192,000. Sodium 136, potassium 3.8, chloride 95, CO2 30, BUN of 29, creatinine 0.6, glucose 192. ASSESSMENT/PLAN: 1. An acute chronic obstructive pulmonary disease exacerbation. We will continue her antibiotics, breathing treatments, oxygen, and steroids, we will decrease them to 60 mg IV q.8. 2. Hypokalemia. Resolved. 3. Right axilla abscess. We will continue her antibiotic and monitor. It does not appear that it needs an incision and drainage at this point. 4. Chronic lymphocytic leukemia. Aware. 5. Tobacco abuse. We will start her on a nicotine patch 21 mg daily. We will recheck a CBC and a BMP in the a.m. Dictated by ROSA Felix for Lc Parada MD cc: ROSA Felix MD pt examined, continue tx and follow, will need to discuss with dr sethi about her WBC counts and follow APENOT MTDD
[2016-08-23] MEDS: NICODERM PATCH TD SCH (17:05)
[2016-08-23] MEDS: ROCEPHIN 1 GM/NS 1 GM/50 ML IVPB IV SCH (17:50)
[2016-08-23] MEDS: NORCO-7.5 PO PRN (17:59)
[2016-08-23] MEDS: LOVENOX SUBQ SCH (18:06)
[2016-08-23] MEDS: DOXYCYCLINE PO SCH (20:27)
[2016-08-23] MEDS: BACITRACIN OINTMENT TOP SCH (20:42)
[2016-08-24] MEDS: NORCO-7.5 PO PRN ×2 (01:47→16:21)
[2016-08-24] MEDS: SOLU-MEDROL IV SCH ×3 (01:47→17:20)
[2016-08-24] MEDS: DUONEB (A & A) INH SCH ×6 (02:38→23:00)
[2016-08-24 06:27] LABS: AGAP 11; BUN 37 mg/dL (8-22); CALCIUM 9.4 mg/dL (8.8-10.2); CHLORIDE 97 mmol/L (98-107); COSMO 286; POTASSIUM 3.8 mmol/L (3.5-5.1); SODIUM 136 mmol/L (136-145); TCO2 28 mmol/L (25-35)
[2016-08-24 06:36] LABS: BASO% 0.1 % (0.0-0.8); HEMATOCRIT 44.5 % (37.0-47.0); HEMOGLOBIN 13.9 g/dL (12.0-16.0); IMM GRAN# 0.17 X1000 (0.0-0.04); IMM GRAN% 0.5 % (0.0-0.5); LYMPH% 42.5 % (20.5-51.1); MANUAL DIFF NEEDED? YES; MCHC 31.2 g/dL (33-37); MCV 92.9 FL (81-99); MONO# 0.54 X1000 (0.11-0.59); MONO% 1.5 % (1.7-9.3); MPV 12.6 FL (7.4-10.4); NEUT% 55.4 % (42.2-75.2); PLT 205 X1000 (130-400); RBC 4.79 XMIL (4.2-5.4)
[2016-08-24 06:40] LABS: BANDS 2 % (0-1); LYMPHS 24 % (21-51); MONO 2 % (1-9)
[2016-08-24] MEDS: MORPHINE IV PRN ×2 (06:54→18:48)
[2016-08-24] MEDS: HUMALOG DOSE (PARKWAY) SUBQ SCH ×4 (06:54→20:52)
[2016-08-24] MEDS: ZOFRAN IV PRN (06:54)
[2016-08-24] MEDS: XANAX PO SCH ×2 (09:17→20:35)
[2016-08-24] MEDS: NICODERM PATCH TD SCH (09:17)
[2016-08-24] MEDS: GLUCOTROL PO SCH ×2 (09:17→20:35)
[2016-08-24] MEDS: BUSPAR PO SCH ×2 (09:17→20:35)
[2016-08-24] MEDS: ZANAFLEX PO SCH ×2 (09:17→20:35)
[2016-08-24] MEDS: PAXIL PO SCH (09:18)
[2016-08-24] MEDS: BACITRACIN OINTMENT TOP SCH ×2 (09:18→20:39)
[2016-08-24] MEDS: DOXYCYCLINE PO SCH ×2 (09:18→20:35)
[2016-08-24] MEDS: PRINIVIL PO SCH (09:18)
[2016-08-24] MEDS: APRESOLINE PO SCH ×4 (09:18→16:31)
[2016-08-24] MEDS: MBX SOLUTION MT PRN ×2 (09:29→16:32)
[2016-08-24] MEDS: PATIENT'S OWN MED PO SCH (09:29)
[2016-08-24] MEDS ORDERED: MYCOSTATIN SUSP PO SCH ×2 (17:00→21:00)
[2016-08-24] MEDS: LOVENOX SUBQ SCH (17:19)
--- NOTE | 2016-08-24 17:20 | PROGRESS NOTE ---
DATE: 08/24/2016 SUBJECTIVE: Patient is sitting up in bed. No complaints voiced at this time. OBJECTIVE: Vital Signs: Temperature 98.1 degrees, pulse 76, respirations 16, blood pressure of 137/85, saturating 93-94% on 2 L via nasal cannula. General: This is a 50-year -old female who is sitting up in the bed, answers questions appropriately. HEENT: Normocephalic and atraumatic. Pupils are equal, round, and reactive to light. Extraocular movements are intact. Oropharynx and nares are clear. Neck: Supple. Lungs: With decreased breath sounds throughout entire posterior lung mg. Equal lung expansion and chest wall movement noted. Heart: With regular rate and rhythm. No murmurs, rubs, or gallops. Abdomen: Soft, nontender, nondistended. Bowel sounds are present x4 quadrants. Extremities: No clubbing, cyanosis, or edema. Neurological: The cranial nerves 2-12 appear grossly intact. LABORATORY DATA: Showed a white blood cell count of 36.24, hemoglobin of 13.9, hematocrit 44.5, platelets of 205,000. Sodium of 136, potassium 3.8, chloride 97, CO2 28, BUN of 37, creatinine 0.8, glucose 203. ASSESSMENT: 1. An acute chronic obstructive pulmonary disease exacerbation. We will continue her antibiotics, breathing treatments, oxygen. We will leave her steroids at 60 mg IV q.8 hours at this time. 2. Chronic lymphocytic leukemia with leukocytosis. We are going to touch base with Oncology to discuss the possibility of starting her on Hydrea. We will page them and get their input at this time. 3. Right axilla folliculitis. She continues on an antibiotic time. It does not appear to need any incision and drainage at this point so we will continue to monitor. 4. Tobacco abuse is stable. We will recheck CBC, BMP in the a.m. Dictated by ROSA Felix for Lc Parada MD cc: ROSA Felix MD pt examined, agree with above APENOT MTDD
[2016-08-24] MEDS: ROCEPHIN 1 GM/NS 1 GM/50 ML IVPB IV SCH (17:24)
[2016-08-24] MEDS: PROTONIX PO SCH ×2 (18:59→20:35)
[2016-08-24] MEDS: MYCOSTATIN SUSP PO SCH ×2 (18:59→20:35)
--- NOTE | 2016-08-24 19:30 | Diag Imaging Result Doc PS360 ---
EXAM: ABDOMEN/PELVIS W/CONTRAST HISTORY: n/v/abdominal pain TECHNIQUE: Dose reduction protocol COMPARISON: 07/11/2016 FINDINGS: The gallbladder is contracted. Mild fatty infiltration of the liver. Normal spleen, pancreas, and adrenal glands. There is a tiny left renal cyst. No solid renal mass. No hydronephrosis. No aortic aneurysm. There is debris within the stomach. No bowel obstruction. No inflammation about the appendix. No abscess. There is stool throughout the colon. The urinary bladder is mildly distended. Normal uterus and ovaries. IMPRESSION: 1.Fatty infiltration of the liver 2.Contracted gallbladder 3.Constipation Electronically signed by Fortino Fierro 08/24/2016 7:28 PM
[2016-08-25] MEDS: SOLU-MEDROL IV SCH ×3 (01:29→21:16)
[2016-08-25] MEDS: NORCO-7.5 PO PRN ×3 (01:30→18:25)
[2016-08-25] MEDS: ZOFRAN IV PRN (02:55)
[2016-08-25] MEDS: DUONEB (A & A) INH SCH ×6 (04:03→23:34)
[2016-08-25] MEDS: PROTONIX PO SCH (06:20)
[2016-08-25] MEDS: MORPHINE IV PRN ×3 (06:22→21:27)
[2016-08-25] MEDS: HUMALOG DOSE (PARKWAY) SUBQ SCH ×4 (06:26→21:18)
[2016-08-25 06:31] LABS: BASO% 0.1 % (0.0-0.8); HEMATOCRIT 41.5 % (37.0-47.0); HEMOGLOBIN 12.7 g/dL (12.0-16.0); IMM GRAN# 0.16 X1000 (0.0-0.04); IMM GRAN% 0.5 % (0.0-0.5); LYMPH# 14.66 X1000 (1.2-3.4); LYMPH% 46.2 % (20.5-51.1); MANUAL DIFF NEEDED? YES; MCH 28.6 PG (27-31); MCHC 30.6 g/dL (33-37); MCV 93.5 FL (81-99); MONO# 0.52 X1000 (0.11-0.59); MONO% 1.6 % (1.7-9.3); NEUT% 51.6 % (42.2-75.2); PLT 168 X1000 (130-400); RBC 4.44 XMIL (4.2-5.4)
[2016-08-25 06:35] LABS: AGAP 10; BUN 31 mg/dL (8-22); CALCIUM 8.9 mg/dL (8.8-10.2); CHLORIDE 99 mmol/L (98-107); COSMO 281; POTASSIUM 4.2 mmol/L (3.5-5.1); SODIUM 135 mmol/L (136-145); TCO2 26 mmol/L (25-35)
[2016-08-25 07:31] LABS: LYMPHS 46 % (21-51); MONO 2 % (1-9)
[2016-08-25] MEDS: APRESOLINE PO SCH ×3 (08:13→16:33)
[2016-08-25] MEDS: PAXIL PO SCH (08:13)
[2016-08-25] MEDS: PRINIVIL PO SCH (08:13)
[2016-08-25] MEDS: ZANAFLEX PO SCH ×2 (08:13→21:17)
[2016-08-25] MEDS: GLUCOTROL PO SCH ×2 (08:13→21:17)
[2016-08-25] MEDS: XANAX PO SCH ×3 (08:13→21:17)
[2016-08-25] MEDS: DOXYCYCLINE PO SCH ×2 (08:13→21:17)
[2016-08-25] MEDS: MBX SOLUTION MT PRN ×2 (08:14→16:33)
[2016-08-25] MEDS: BUSPAR PO SCH ×2 (08:14→21:16)
[2016-08-25] MEDS: MYCOSTATIN SUSP PO SCH ×4 (08:14→21:16)
[2016-08-25] MEDS: NICODERM PATCH TD SCH (08:14)
[2016-08-25] MEDS: BACITRACIN OINTMENT TOP SCH ×2 (08:19→21:19)
[2016-08-25] MEDS: PATIENT'S OWN MED PO SCH (08:19)
[2016-08-25] MEDS: LACTULOSE PO SCH ×2 (12:16→21:16)
[2016-08-25] MEDS: MIRALAX PO SCH (12:16)
--- NOTE | 2016-08-25 13:49 | Diag Imaging Result Doc PS360 ---
EXAM: ANGIOGRAM/PULMONARY ARTERIES HISTORY: chest pain TECHNIQUE: COMPARISON: 07/12/2016 FINDINGS: No pleural effusions. No cardiomegaly. No thoracic aortic aneurysm or dissection. No enlarged mediastinal or hilar lymph nodes. No filling defects. There is a small amount of atelectasis in the lingular segment of the left upper lobe. No consolidation. No bronchiectasis. IMPRESSION: 1.No pulmonary emboli 2.Mild atelectasis, but no pneumonia Electronically signed by Fortino Fierro 08/25/2016 1:47 PM
--- NOTE | 2016-08-25 15:34 | PROGRESS NOTE ---
DATE: 08/25/2016 SUBJECTIVE: Patient has no focal complaints. She is still seems very disheveled, diaphoretic and flushed. OBJECTIVE: Vital signs: Blood pressure 179/93, heart rate of 116, respiratory rate 20, temperature 98 degrees, 99% on 1 L. Cardiovascular: Regular rate and rhythm. Pulmonary: Bilateral breath sounds. Clear to auscultation. GI: Soft, nontender, nondistended. Bowel sounds are positive. LABORATORY DATA: White count 31, hemoglobin and hematocrit 12 and 41, platelets 168,000. Chemistries looked okay. CTA was negative. Abdominal pelvic CT just showed constipation. PROBLEM LIST: 1. Chronic obstructive pulmonary disease exacerbation. Continue breathing treatments, antibiotics. We will wean steroids. 2. Chronic lymphocytic leukemia. She appears to be doing okay from that standpoint. I have discussed the case with Dr. Moscoso. She recommended ruling out PE and checking immunoglobulin levels but did not feel that the CLL was changing per se and that the steroids and infection may be contributing to her leukocytosis. 3. Folliculitis. Continue antibiotics. We will continue to follow. DISPOSITION: Possibly home the next 1-2 days depending on course. cc: Lc Parada MD
[2016-08-25] MEDS: XANAX PO PRN (16:33)
[2016-08-25] MEDS: ROCEPHIN 1 GM/NS 1 GM/50 ML IVPB IV SCH (18:17)
[2016-08-25] MEDS: LOVENOX SUBQ SCH (18:17)
[2016-08-26] MEDS: DUONEB (A & A) INH SCH ×5 (04:14→21:14)
[2016-08-26] MEDS: PROTONIX PO SCH (06:29)
[2016-08-26] MEDS: HUMALOG DOSE (PARKWAY) SUBQ SCH ×4 (06:29→20:52)
[2016-08-26 06:58] LABS: HEMATOCRIT 43.8 % (37.0-47.0); HEMOGLOBIN 13.3 g/dL (12.0-16.0); MCH 28.7 PG (27-31); MCHC 30.4 g/dL (33-37); MCV 94.6 FL (81-99); MPV 12.8 FL (7.4-10.4); RBC 4.63 XMIL (4.2-5.4)
[2016-08-26 07:17] LABS: AGAP 11; BUN 22 mg/dL (8-22); CHLORIDE 98 mmol/L (98-107); COSMO 277; POTASSIUM 4.5 mmol/L (3.5-5.1); SODIUM 134 mmol/L (136-145); TCO2 25 mmol/L (25-35)
[2016-08-26] MEDS: MORPHINE IV PRN ×2 (08:51→18:35)
[2016-08-26] MEDS: MIRALAX PO SCH (08:52)
[2016-08-26] MEDS: XANAX PO PRN ×3 (08:52→20:52)
[2016-08-26] MEDS: MBX SOLUTION MT PRN (08:52)
[2016-08-26] MEDS: XANAX PO SCH ×2 (08:53→20:52)
[2016-08-26] MEDS: DOXYCYCLINE PO SCH ×2 (08:53→20:52)
[2016-08-26] MEDS: BUSPAR PO SCH ×2 (08:53→20:52)
[2016-08-26] MEDS: PAXIL PO SCH (08:53)
[2016-08-26] MEDS: APRESOLINE PO SCH ×3 (08:53→18:35)
[2016-08-26] MEDS: ZANAFLEX PO SCH ×2 (08:53→20:52)
[2016-08-26] MEDS: GLUCOTROL PO SCH ×2 (08:53→20:51)
[2016-08-26] MEDS: PRINIVIL PO SCH (08:53)
[2016-08-26] MEDS: PATIENT'S OWN MED PO SCH (08:54)
[2016-08-26] MEDS: LACTULOSE PO SCH ×2 (08:54→20:51)
[2016-08-26] MEDS: MYCOSTATIN SUSP PO SCH ×4 (08:54→20:51)
[2016-08-26] MEDS: NICODERM PATCH TD SCH (08:54)
[2016-08-26] MEDS: BACITRACIN OINTMENT TOP SCH ×2 (09:02→20:55)
[2016-08-26] MEDS: SOLU-MEDROL IV SCH (11:38)
[2016-08-26] MEDS: NORCO-7.5 PO PRN ×2 (15:02→20:52)
--- NOTE | 2016-08-26 16:15 | PROGRESS NOTE ---
DATE: 08/26/2016 SUBJECTIVE: Patient has no focal complaints. She looks much better today finally. OBJECTIVE: Vital Signs: Blood pressure 119/72, heart rate of 98, respiratory rate of 16, temperature 98.4 degrees, 94% on 1 L. Cardiovascular: Regular rate and rhythm. Pulmonary: Bilateral breath sounds. Clear to auscultation. Occasional rhonchi. GI: Soft, nontender, nondistended. Bowel sounds are positive. She does not look flushed today or diaphoretic, she just looks better. She is still having some chest pain but overall doing okay. LAB: White count 28, hemoglobin and hematocrit 13 and 43. Chemistries are okay. PROBLEM LIST: 1. Chronic obstructive pulmonary disease exacerbation bronchitis. I am going to wean steroids. She is refusing a lot of her breathing treatments especially at night, so just cut them to during the day. 2. Chest pain is atypical. We have done a hefty workup, abdominal ultrasound, abdominal pelvic CT, pulmonary CT angiogram, cardiac enzymes. All those are really unremarkable. I think this is bronchitis. Certainly could be a gastrointestinal issue. She is on Protonix and nystatin in case this may be related to some monilial candidal esophagitis. 3. Diabetes appears to be controlled. DISPOSITION: Likely home tomorrow if clinically improved. cc: Lc Parada MD
[2016-08-26] MEDS: ROCEPHIN 1 GM/NS 1 GM/50 ML IVPB IV SCH (18:36)
[2016-08-26] MEDS: LOVENOX SUBQ SCH (18:39)
[2016-08-27] MEDS: XANAX PO PRN ×3 (00:29→15:22)
[2016-08-27] MEDS: HUMALOG DOSE (PARKWAY) SUBQ SCH ×2 (06:35→10:52)
[2016-08-27] MEDS: PROTONIX PO SCH (06:36)
[2016-08-27 06:39] LABS: HEMATOCRIT 39.5 % (37.0-47.0); MCH 28.7 PG (27-31); MCHC 30.4 g/dL (33-37); MCV 94.5 FL (81-99); MPV 12.7 FL (7.4-10.4); RBC 4.18 XMIL (4.2-5.4)
[2016-08-27 07:06] LABS: AGAP 8; BUN 21 mg/dL (8-22); CALCIUM 9.1 mg/dL (8.8-10.2); CHLORIDE 101 mmol/L (98-107); COSMO 279; SODIUM 138 mmol/L (136-145); TCO2 29 mmol/L (25-35)
[2016-08-27] MEDS: DUONEB (A & A) INH SCH (08:30)
[2016-08-27] MEDS: NICODERM PATCH TD SCH (08:54)
[2016-08-27] MEDS: BACITRACIN OINTMENT TOP SCH (08:54)
[2016-08-27] MEDS: MIRALAX PO SCH (08:54)
[2016-08-27] MEDS: GLUCOTROL PO SCH (08:55)
[2016-08-27] MEDS: PAXIL PO SCH (08:55)
[2016-08-27] MEDS: APRESOLINE PO SCH ×2 (08:55→14:37)
[2016-08-27] MEDS: LACTULOSE PO SCH (08:55)
[2016-08-27] MEDS: XANAX PO SCH (08:55)
[2016-08-27] MEDS: DOXYCYCLINE PO SCH (08:55)
[2016-08-27] MEDS: MYCOSTATIN SUSP PO SCH ×2 (08:55→13:15)
[2016-08-27] MEDS: PRINIVIL PO SCH (08:55)
[2016-08-27] MEDS: ZANAFLEX PO SCH (08:55)
[2016-08-27] MEDS: PATIENT'S OWN MED PO SCH (08:56)
[2016-08-27] MEDS ORDERED: SOLU-MEDROL IV SCH (09:00)
[2016-08-27] MEDS: MORPHINE IV PRN ×2 (09:00)
[2016-08-27] MEDS: BUSPAR PO SCH (09:03)
[2016-08-27] MEDS: NORCO-7.5 PO PRN (13:20)
[2016-08-27 14:38] VITALS: BP 161/70
--- NOTE | 2016-08-27 17:05 | DISCHARGE SUMMARY ---
ADMISSION DATE: 08/22/2016 DISCHARGE DATE: 08/27/2016 DISCHARGE DIAGNOSES: 1. Chronic obstructive pulmonary disease exacerbation, bronchitis. 2. Chronic lymphocytic leukemia. 3. Type 2 diabetes. 4. Atypical chest pain. HISTORY AND HOSPITAL COURSE: Briefly, this is a 50-year-old female with tobacco abuse history, nausea, vomiting, abdominal discomfort. She was found to have wheezing and some hypoxia, so she was admitted for treatment. Workup in the ER was really unremarkable. She was placed on breathing treatments, steroids, Rocephin, and very slowly clinically improved. She was still having some abdominal discomfort, so we progressed with an abdominal CT, which was negative. She had a small right axillary folliculitis that was treated with K-pad and bacitracin, and it spontaneously ruptured. Clinically, she stabilized. Her white count did jump up. On admission, was 31, was as high as 36, and at the time of discharge is around 17, which is closer to her baseline. She slowly improved. We did do a CTA because she had some intermittent episodes with diaphoresis and flushing, but I think after further evaluation, it was likely related to her CLL and possibly the steroids. CTA was negative for pneumonia and pulmonary emboli. I discussed the case briefly with Dr. Moscoso, who recommended ruling out VTE, and also checking her immunoglobulin levels, but those levels were normal, or within normal range. In any case, the patient slowly clinically improved. By the day of discharge, she was 98% on room air, afebrile, white count had come down to about 17,000, and she was felt stable for discharge. DISCHARGE MEDICATIONS: 1. DuoNebs t.i.d. 2. Xanax 0.25 b.i.d. 3. BuSpar 5 b.i.d. 4. Doxycycline 100 p.o. b.i.d. for 7 days. 5. Estradiol daily. 6. Glipizide 10 b.i.d. 7. Hydralazine 50 t.i.d. 8. Prinivil 20 daily. 9. Zofran p.r.n. 10. Paxil 20 daily. 11. Prednisone 20 mg for 5 days, then 10 mg for 5 days, then off. 12. Zanaflex 4 mg b.i.d. TIME SPENT: 32 minute discharge. cc: MD Shantell Young CRNP Sammy Becdach, MD
== END 2016-08-27 16:20 | disposition home or self-care (01) ==
LOC: P.ED 13:08 → P.MEDSURG 16:52
PROVIDERS: ATTEND Internal Medicine

== ENCOUNTER 2016-10-15 14:36 | Inpatient (IN) ==
[2016-10-15 15:03] LABS: BE 5.2 mmoll (-3.0-3.0); BLOOD TYPE ARTERIAL; DRAW SITE R BRACHIAL; METHB 1.2 % (0.0-1.5); O2(CT) 13.4 mL/dL (15.0-23.0); SAMPLE BLOOD; SAO2 79.3 % (95.0-100.0); THB 13.7 g/dL (11.5-17.4); pH(98.6) 7.31 (7.35-7.45)
[2016-10-15 15:05] LABS: PCO2(98.6) 67 mmHg (35-45)
[2016-10-15 15:06] LABS: ALLEN TEST NO; MODALITY ROOM AIR
[2016-10-15 15:07] LABS: PO2(98.6) 38 mmHg (60-100)
--- NOTE | 2016-10-15 15:08 | EKG Report ---
Test Performed on : 10/15/2016 2:49:14 PM Test Reason : CP Blood Pressure : / mmHG Vent. Rate : 091 BPM Atrial Rate : 091 BPM P-R Int : 132 ms QRS Dur : 088 ms QT Int : 356 ms P-R-T Axes : 079 -21 074 degrees QTc Int : 437 ms Normal sinus rhythm. Possible Left atrial enlargement Borderline ECG When compared with ECG of 22-AUG-2016 13:32, Nonspecific T wave abnormality no longer evident in Anterior leads Unconfirmed Result
[2016-10-15 15:27] LABS: BASO% 0.2 % (0.0-0.8); EOS# 0.02 X1000 (0.0-0.7); EOS% 0.1 % (0.0-10.0); HEMATOCRIT 44.1 % (37.0-47.0); HEMOGLOBIN 13.4 g/dL (12.0-16.0); IMM GRAN# 0.07 X1000 (0.0-0.04); IMM GRAN% 0.4 % (0.0-0.5); LYMPH# 10.74 X1000 (1.2-3.4); LYMPH% 56.6 % (20.5-51.1); MANUAL DIFF NEEDED? NO; MCH 28.9 PG (27-31); MCHC 30.4 g/dL (33-37); MONO% 4.2 % (1.7-9.3); NEUT% 38.5 % (42.2-75.2); PLT 350 X1000 (130-400); RBC 4.64 XMIL (4.2-5.4)
--- NOTE | 2016-10-15 15:35 | Diag Imaging Result Doc PS360 ---
EXAM: CHEST-PORTABLE HISTORY: CP TECHNIQUE: Erect AP portable at 1514 COMMENT: There is no evidence of acute cardiac or pulmonary disease. Compared to 08/22/2016 there has been no significant change in the appearance of the chest. IMPRESSION: No acute disease. Electronically signed by Nilay Farrell 10/15/2016 3:33 PM
[2016-10-15 15:46] LABS: AGAP 9; ALBUMIN 3.8 g/dL (3.5-5.0); ALKALINE PHOSPHATASE 69 U/L (32-104); BUN 19 mg/dL (8-22); CALCIUM 9.1 mg/dL (8.8-10.2); CHLORIDE 94 mmol/L (98-107); CK PROFILE 26 U/L (24-173); COSMO 271; GOT 28 U/L (10-30); GPT 21 U/L (10-36); MAGNESIUM 1.6 mg/dL (1.5-2.7); POTASSIUM 4.2 mmol/L (3.5-5.1); SODIUM 133 mmol/L (136-145); TCO2 30 mmol/L (25-35); TOTAL PROTEIN 7.5 g/dL (6.3-8.3)
[2016-10-15 15:51] LABS: INR 0.92 (0.86-1.15); PROTIME 12.7 Seconds (12.1-15.5)
[2016-10-15 15:52] LABS: PTT PL 27.5 Seconds (22.6-43.9)
[2016-10-15] MEDS ORDERED: DUONEB (A & A) INH ONE (15:59)
[2016-10-15] MEDS ORDERED: ATIVAN IV ONE (15:59)
[2016-10-15] MEDS ORDERED: LEVAQUIN 750 MG/D5W 750 MG/150 ML IVPB IV ONE (15:59)
[2016-10-15] MEDS ORDERED: SOLU-MEDROL IV ONE (15:59)
[2016-10-15] MEDS ORDERED: NS 1,000 ML IV ONE ×2 (16:00→18:15)
[2016-10-15] MEDS ORDERED: NS 1,000 ML ONE (16:11)
--- NOTE | 2016-10-15 16:30 | PROVIDER DOCUMENTATION ---
This chart was entered by Yves Martinez Scribe, acting as scribe for Jenna Morocho MD. HPI-Respiratory General - General Chief Complaint: Shortness of Breath Stated Complaint: CHEST PAIN,SHORTNESS OF BREATH Time Seen by Provider: 10/15/16 14:46 Source: patient Allergies/Adverse Reactions: Patient Allergies Allergy/AdvReac Type Severity Reaction Status Date / Time No Known Allergies Allergy Verified 08/21/16 13:48 Home Medications: Home Medication List Medication Instructions Recorded Confirmed Last Taken Type Buspirone HCl [Buspar] 5 mg PO BID 04/21/16 08/22/16 08/21/16 08:00 History Paroxetine [Paxil] 20 mg PO DAILY 04/21/16 08/22/16 08/21/16 08:00 History Glipizide 10 mg PO BID 05/02/16 08/22/16 08/21/16 08:00 History Hydralazine [Apresoline] 50 mg PO TID #90 tablet 07/19/16 08/22/16 08/21/16 08: 00 Rx LISINOpril [Prinivil] 20 mg PO DAILY #30 tablet 07/19/16 08/22/16 08/21/16 08: 00 Rx Alprazolam [Xanax] 0.25 mg PO BID 08/21/16 08/22/16 08/21/16 08:00 History Estradiol/Norethindrone Acet 1 each PO DAILY 08/21/16 08/22/16 08/21/16 08:00 History [Estradiol-Noreth 0.5-0.1 mg Tb] Ondansetron [Zofran] 8 mg PO Q6HR #12 tablet 08/21/16 08/21/16 08:00 Rx Tizanidine HCl [Zanaflex] 4 mg PO BID 08/21/16 08/22/16 08/21/16 08:00 History Albuterol 2.5MG/Ipratrop 0.5MG 3 ml INH RTTID #90 neb 08/27/16 Unknown Rx [Duoneb] Alprazolam [Xanax] 0.5 mg PO BID PRN #45 tablet 08/27/16 Unknown Rx Doxycycline 100 mg PO BID #14 tablet 08/27/16 Unknown Rx Nebulizer [Aeroneb Go Nebulizer] 1 each MC DAILY #1 each 08/27/16 Unknown Rx Prednisone 10 mg PO DAILY #30 tablet 08/27/16 Unknown Rx - History of Present Illness-Resp Nature of Presenting Problem: patient is a 50 y/o F that presents to the ER with shortness of breath, chest pressure, and anxiety. patient was sent here by pcp due to o2 saturation being 75 % on RA. patient on arrival to ER is at 82% but denies any distress Quality of Pain: reports: tightness Severity in ED: reports: moderate, severe Onset/Duration: reports: abrupt, this morning Timing: reports: still present, constant Context: denies: sports/exercise, aspiration/choking Cough Quality/Degree: reports: no cough Episode Frequency: frequent episodes Current Respiratory Medication Therapy: Initiated see nurses note Modifying Factors: worse with: exertion Associated Symptoms: reports: chest pain/soreness, shortness of breath, short of breath. denies: fever/chills, flu-like symptoms, nasal congestion, nasal drainage, wheezing Similar Symptoms Previously?: Yes Recently seen or treated by another doctor?: No Review of Systems - Adult - REVIEW OF SYSTEMS - ADULT Constitutional: denies: chills, fever Eyes: reports: no symptoms reported Ears, Nose, Mouth & Throat: reports: no symptoms reported Cardiovascular: reports: chest pain. denies: palpitations, syncope Respiratory: reports: shortness of breath. denies: cough, wheezing Gastrointestinal: denies: nausea Genitourinary: reports: no symptoms reported Musculoskeletal: reports: no symptoms reported Integumentary: reports: no symptoms reported Neurological: reports: no symptoms reported Psychiatric: reports: anxiety. denies: depression Endocrine: reports: no symptoms reported Hematologic/Lymphatic: reports: no symptoms reported Allergic/Immunologic: reports: no symptoms reported All Other Systems: Reviewed and Negative Past History - Adult - PAST MEDICAL HISTORY-ADULT Review of Records: reports: Old Records Reviewed, Nursing Assessment Review, Medications Reviewed Cardiovascular: reports: HTN Respiratory: reports: COPD Psychiatric: reports: anxiety Endocrine/Immune: reports: Diabetes, Leukemia (cll) - PRIOR SURGERIES/PROCEDURES Surgical/Procedure History: reports: BTL - IMMUNIZATION STATUS Childhood Immunizations: See Nurse Assessment Flu Vaccine: See Nurse Assessment - FAMILY HISTORY Family History: reviewed, not pertinent - SOCIAL HISTORY Smoking: cigarettes, less than 1 pack/day Living Situation: family Physical Exam-General - PHYSICAL EXAM-ADULT Initial Vital Signs Reviewed: Yes - CONSTITUTIONAL General Appearance: alert, moderate distress, anxious - EYES Eyes: PERRL/EOMI, pink conjunctivae - HEAD, EARS, NOSE, MOUTH & THROAT HENMT: normocephalic/atraumatic, moist mucous membranes, normal ENT inspection - NECK Neck: full range of motion, normal inspection - RESPIRATORY Respiratory: no accessory muscle use, respiratory distress (mild to moderate), decreased breath sounds (bilateral lower bases ( no air movement)) - CARDIOVASCULAR Cardiovascular: regular rate, rhythm, no edema - GASTROINTESTINAL (ABDOMEN) Abdominal Exam: normal bowel sounds, non tender, soft - MUSCULOSKELETAL Extremity: normal range of motion, normal inspection, no pedal edema - SKIN Integumentary: warm/dry - 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, no motor/sensory deficits - PSYCHIATRIC Psych/Mental Status: oriented x 3, anxious Progress - PLAN OF CARE/RESULTS Progress/Plan/Lab Results: Vital Signs - 8 hr 10/15/16 14:40 10/15/16 15:00 10/15/16 15:10 Temperature 97.6 F Pulse Rate 93 H Respiratory Rate 24 Blood Pressure 125/69 O2 Sat by Pulse Oximetry 82 L 83 L 94 L 10/15/16 15:15 10/15/16 16:06 10/15/16 16:19 Temperature Pulse Rate 78 Respiratory Rate 23 Blood Pressure O2 Sat by Pulse Oximetry 97 94 L 10/15/16 16:23 Temperature Pulse Rate 79 Respiratory Rate 18 Blood Pressure 107/65 O2 Sat by Pulse Oximetry Laboratory Results - last 24 hr 10/15/16 10/15/16 10/15/16 14:30 15:00 15:00 WBC RBC Hgb Hct MCV MCH MCHC RDW Std Deviation Plt Count MPV Immature Gran % (Auto) Neut % (Auto) Lymph % (Auto) Graves % (Auto) Eos % (Auto) Baso % (Auto) Immature Gran # (Auto) Neut # (Auto) Lymph # (Auto) Graves # (Auto) Eos # (Auto) Baso # (Auto) PT INR APTT (Factor Assay) D-Dimer Specimen Type ARTERIAL Sample Site R BRACHIAL pH 7.31 L pCO2 67 H* pO2 38 L* HCO3 28.2 H Base Excess 5.2 H Oxyhemoglobin 69.7 L* ABG O2 Sat (Calculated) 13.4 L ABG O2 Saturation 79.3 L ABG Carboxyhemoglobin 10.80 H* ABG Methemoglobin 1.2 Pa Test NO A-a O2 Difference 28.0 Total Hemoglobin 13.7 Lactate 0.90 Blood Gas Modality ROOM AIR FiO2 % 21.0 Sodium 133 L Potassium 4.2 Chloride 94 L Carbon Dioxide 30 Anion Gap 9 BUN 19 Creatinine 0.6 Estimated GFR/1.73 m2 > 60 BUN/Creatinine Ratio 32 Glucose 144 H Calculated Osmolality 271 Calcium 9.1 Magnesium 1.6 Total Bilirubin 0.40 AST 28 ALT 21 Alkaline Phosphatase 69 Creatine Kinase 26 Troponin T 0.010 Luj-M-Xqtqqcyugwm Pept Total Protein 7.5 Albumin 3.8 Globulin 4.0 Albumin/Globulin Ratio 1.0 10/15/16 10/15/16 10/15/16 15:00 15:00 15:00 WBC 18.99 H RBC 4.64 Hgb 13.4 Hct 44.1 MCV 95.0 MCH 28.9 MCHC 30.4 L RDW Std Deviation 14.9 H Plt Count 350 MPV 11.0 H Immature Gran % (Auto) 0.4 Neut % (Auto) 38.5 L Lymph % (Auto) 56.6 H Graves % (Auto) 4.2 Eos % (Auto) 0.1 Baso % (Auto) 0.2 Immature Gran # (Auto) 0.07 H Neut # (Auto) 7.33 H Lymph # (Auto) 10.74 H Graves # (Auto) 0.80 H Eos # (Auto) 0.02 Baso # (Auto) 0.03 PT 12.7 INR 0.92 APTT (Factor Assay) 27.5 D-Dimer 0.45 Specimen Type Sample Site pH pCO2 pO2 HCO3 Base Excess Oxyhemoglobin ABG O2 Sat (Calculated) ABG O2 Saturation ABG Carboxyhemoglobin ABG Methemoglobin Pa Test A-a O2 Difference Total Hemoglobin Lactate Blood Gas Modality FiO2 % Sodium Potassium Chloride Carbon Dioxide Anion Gap BUN Creatinine Estimated GFR/1.73 m2 BUN/Creatinine Ratio Glucose Calculated Osmolality Calcium Magnesium Total Bilirubin AST ALT Alkaline Phosphatase Creatine Kinase Troponin T Cij-U-Ekuxttewgah Pept 881 H Total Protein Albumin Globulin Albumin/Globulin Ratio Orders Category Date Time Status Cardiac Monitoring DIRECTED Care 10/15/16 14:48 Active Saline Loc NOW Care 10/15/16 14:48 Active CHEST-PORTABLE [RAD] Stat Exams 10/15/16 14:48 Completed ABG [RESP] Routine Lab 10/15/16 14:30 Completed CBC WITH ELECTRONIC DIFF [HEME] Stat Lab 10/15/16 15:00 Completed CK PROFILE [SP CHEM] Stat Lab 10/15/16 15:00 Completed COMPREHENSIVE METABOLIC PANEL [CHEM] Stat Lab 10/15/16 15:00 Completed D-DIMER PL [COAG] Stat Lab 10/15/16 15:00 Completed MAGNESIUM [CHEM] Stat Lab 10/15/16 15:00 Completed PRO B-NATRIURETIC PEPTIDE Stat Lab 10/15/16 15:00 Completed [address]IME WITH INR PL [COAG] Stat Lab 10/15/16 15:[address] [COAG] Stat Lab 10/15/16 15:00 Completed TROPONIN T Stat Lab 10/15/16 15:00 Completed ua [URINALYSIS PL W/POSS RFLX CULT] [URINALYSIS] Stat Lab 10/15/16 16:23 Ordered 0.9% Sodium Chloride Inj [Ns] 1,000 ml Med 10/15/16 16:11 Discontinued .ROUTE As Directed 0.9% Sodium Chloride Inj [Ns] 1,000 ml Med 10/15/16 16:00 Active IV 999 mls/hr Albuterol 2.5MG/Ipratrop 0.5MG [Duoneb (A & A)] Med 10/15/16 15:59 Discontinued 14 ml INH NOW ONE Levofloxacin 750 mg/D5w [Levaquin 750 mg/D5w] Med 10/15/16 15:59 Active 750 mg in 150 ml IV NOW Lorazepam [Ativan] Med 10/15/16 15:59 Discontinued 1 mg IV NOW ONE Methylprednisolone Sod Succ [Solu-Medrol] Med 10/15/16 15:59 Discontinued 125 mg IV NOW ONE Aerosol Treatments Routine Oth 10/15/16 16:00 Completed Aerosol Treatments Stat Oth 10/15/16 16:00 Completed EKG [EKG] Stat Ther 10/15/16 14:48 Draft 1555- at bedside, pt is willing to wear BiPap, ativan ordered, will be called to bedside Orders Category Date Time Status Cardiac Monitoring DIRECTED Care 10/15/16 14:48 Active Saline Loc NOW Care 10/15/16 14:48 Active CHEST-PORTABLE [RAD] Stat Exams 10/15/16 14:48 Completed ABG [RESP] Routine Lab 10/15/16 14:30 Completed CBC WITH ELECTRONIC DIFF [HEME] Stat Lab 10/15/16 15:00 Completed CK PROFILE [SP CHEM] Stat Lab 10/15/16 15:00 Completed COMPREHENSIVE METABOLIC PANEL [CHEM] Stat Lab 10/15/16 15:00 [address] D-DIMER PL [COAG] Stat Lab 10/15/16 15:00 Completed MAGNESIUM [CHEM] Stat Lab 10/15/16 15:00 Completed PRO B-NATRIURETIC PEPTIDE Stat Lab 10/15/16 15:[address]IME WITH INR PL [COAG] Stat Lab 10/15/16 15:[address] [COAG] Stat Lab 10/15/16 15:00 Completed TROPONIN T Stat Lab 10/15/16 15:00 Received ua [URINALYSIS PL W/POSS RFLX CULT] [URINALYSIS] Stat Lab 10/15/16 15:12 Uncollected EKG [EKG] Stat Ther 10/15/16 14:48 Draft Result Diagrams: 10/15/16 15:00 10/15/16 15:00 - EKG 1 Time of EKG reading by physician:: 14:49 EKG Read and Signed by:: Jenna Morocho EKG Interpretation (*Must complete 3 of following elements*): Normal Rate: 91 Rhythm: NSR Gilbert: normal QRS: normal [place] Interval: normal ST Wave: normal - XRAY 1 XRAY Study: Chest Impression: Normal XRAY Interpretation: nad - CONSULTS/PCP/HOSPITALIST Notification #1 *Consult/PCP/Hospitalist*: Dr. Parada Time Discussed: 16:30 Consult Disposition: Will see in ED, Admit Departure - Departure Date of Disposition Decision: 10/15/16 Time of Disposition Decision: 16:28 DIAGNOSIS: COPD exacerbation, Respiratory failure Disposition: ADMITTED INPATIENT 09 Certified Medical Emergency: Emergent Condition: Stable Referrals and Follow-Ups: Shantell Rodrigez CRNP [Primary Care Provider] - - Critical Care Note This patient required my direct & personal management of CC.: Yes Total Time (mins): 45 Critical Care Statement: This patient required my direct personal management to treat or rule out processes, the absence of which, could potentiallly result in sudden, clinically significant life or limb threatening deterioration. This chart was documented by the indicated scribe, (Yves Martinez, Scribe) and accurately reflects the services I performed and decisions made by me, Jenna Morocho MD, as attested by the provider's signature.
[2016-10-15 17:23] LABS: BILIRUBIN URINE NEGATIVE (NEGATIVE); BLOOD URINE 4+ (NEGATIVE); CLARITY CLEAR (CLEAR); COLOR YELLOW; GLUCOSE URINE NEGATIVE (NEGATIVE); LEUKOCYTES URINE TRACE (NEGATIVE); NITRITE URINE NEGATIVE (NEGATIVE); PH URINE 6.5; PROTEIN URINE 1+(30 mg/dL) mg/dL (NEGATIVE); UROBILINOGEN URINE 4+(12 mg/dL)
[2016-10-15 17:35] LABS: URINE CAST NONE SEEN /LPF; URINE CRYSTAL NONE SEEN /HPF; URINE CULTURE PL NEEDED? YES; URINE EPITHELIAL CELLS >10 /HPF (<10); URINE RBC 20-40 /HPF (<10); URINE SOURCE CLEAN CATCH
[2016-10-15] MEDS ORDERED: SODIUM CHLORIDE 0.9% INJ SCH (18:15)
[2016-10-15] MEDS ORDERED: ZOFRAN IV PRN (18:15)
[2016-10-15] MEDS ORDERED: TYLENOL PO PRN (18:15)
[2016-10-15] MEDS ORDERED: DUONEB (A & A) INH PRN (18:15)
[2016-10-15] MEDS ORDERED: SOLU-MEDROL IV SCH (18:15)
[2016-10-15] MEDS: ATIVAN IV PRN (19:18)
[2016-10-15] MEDS: DUONEB (A & A) INH SCH (20:29)
[2016-10-15] MEDS: PROTONIX IV SCH (21:00)
[2016-10-15] MEDS: LOVENOX SUBQ SCH (21:00)
[2016-10-15] MEDS: HUMULIN R SUBQ SCH (21:01)
[2016-10-15 22:24] LABS: BE 2.7 mmoll (-3.0-3.0); BLOOD TYPE ARTERIAL; DRAW SITE R RADIAL; METHB 0.9 % (0.0-1.5); O2(CT) 16.8 mL/dL (15.0-23.0); PO2(98.6) 73 mmHg (60-100); SAMPLE BLOOD; SAO2 96.7 % (95.0-100.0); THB 13.3 g/dL (11.5-17.4); pH(98.6) 7.26 (7.35-7.45)
[2016-10-15] MEDS: SOLU-MEDROL IV SCH (23:00)
[2016-10-15 23:07] LABS: ALLEN TEST YES; MODALITY BI PAP
[2016-10-16] MEDS: DUONEB (A & A) INH SCH ×7 (00:25→23:20)
[2016-10-16] MEDS: ATIVAN IV PRN ×5 (01:02→22:35)
[2016-10-16] MEDS: SOLU-MEDROL IV SCH ×3 (04:35→15:20)
--- NOTE | 2016-10-16 04:54 | HISTORY AND PHYSICAL ---
HISTORY OF PRESENT ILLNESS: Briefly, this is a 50-year-old female with COPD and CLL who presents with shortness of breath for the last 24 hours. She has pretty a significant COPD history. Apparently, her O2 saturations were low in the office at 70% to 80%. She is on ROSA Nguyen today and was sent from there to the ER for evaluation. Here, she was felt to be acutely bronchospastic. Chest x-ray was clear. Her laboratory data showed a white count of 18.9 but she does have known CLL. Her blood gas showed a pH 7.31, pCO2 67, PaO2 of 38, most likely that is somewhat mixed venous gas; that was at 2:30. In any case, she was admitted for acute hypoxic and hypercapnic respiratory failure and admitted for treatment. D-dimer was negative. The patient is awake but somewhat lethargic and she is very adamant about trying to take her BiPAP off, although she does seem to be responding well to it, and she is in the process of getting a continuous breathing treatment. PAST MEDICAL HISTORY: 1. COPD, not on home oxygen. 2. CLL. 3. Diabetes type 2. 4. Anxiety disorder. PAST SURGICAL HISTORY: BTL. FAMILY HISTORY: Reviewed and noncontributory. SOCIAL HISTORY: She still smokes about 1 pack a day. She has done that for probably 25 years. No alcohol. No illicit drugs. ALLERGIES: No known drug allergies. MEDICATIONS: List is being compiled. She has previously been on DuoNebs, Xanax, BuSpar. She was discharged on doxycycline, that was at the end of July. Glipizide, Apresoline, Prinivil, paroxetine, Zanaflex. REVIEW OF SYSTEMS: Otherwise negative x10 point review of systems. PHYSICAL EXAMINATION: VITAL SIGNS: Blood pressure is 107/65, heart rate 79, respiratory 18, temp was 97.6, initial heart rate in the 120s. GENERAL: A well-developed female, appears in moderate distress. She appears diaphoretic. She is sitting up in bed. HEENT: Pupils equal, round, reactive to light. Extraocular movements were intact. Ears, nose and throat with moist mucous membranes. NECK: Supple. CARDIOVASCULAR: Tachy. PULMONARY: Diminished breath sounds throughout. Occasional wheezing. GI: Soft, nontender, nondistended. Bowel sounds are positive. EXTREMITIES: No clubbing or cyanosis. LYMPHATICS: No peripheral edema. NEUROLOGICAL: Nonfocal, although she was somewhat slow to respond. DIAGNOSTIC DATA: Sodium 133, BNP of 881, troponin 0.01. White count 18.9. Chest x-ray was reportedly clear. EKG unremarkable. ASSESSMENT: A 50-year-old female with chronic obstructive pulmonary disease presenting with acute hypoxic and hypercapnic respiratory failure admitted for treatment. 1. Acute hypercapnic respiratory failure. We will continue positive-pressure ventilation. She does seem to be responding. We will do a trial for 4 hours, repeat ABG. If improved, we can give a trial off the BiPAP, although I will use it nocturnally, as I think there is a component of hypoventilation here contributing to her issues. 2. Chronic obstructive pulmonary disease exacerbation. Continue breathing treatments. Continue IV steroids. Levaquin has been initiated. We will maintain that and follow clinically. 3. Diabetes. Monitor blood sugars. Check A1c and follow closely. 4. Disposition pending her clinical status. This is a critical care note. TIME SPENT: Greater than 35 minutes for acute respiratory failure. Positive pressure ventilation. cc: MD Shantell Young CRNP
[2016-10-16 06:07] LABS: BE 3.3 mmoll (-3.0-3.0); BLOOD TYPE ARTERIAL; DRAW SITE R RADIAL; O2(CT) 17.1 mL/dL (15.0-23.0); PO2(98.6) 75 mmHg (60-100); SAMPLE BLOOD; SAO2 97.3 % (95.0-100.0); THB 13.1 g/dL (11.5-17.4)
[2016-10-16 06:10] LABS: MODALITY BI PAP; PCO2(98.6) 64 mmHg (35-45)
[2016-10-16 06:11] LABS: ALLEN TEST YES
[2016-10-16 06:20] LABS: HEMATOCRIT 41.8 % (37.0-47.0); HEMOGLOBIN 12.8 g/dL (12.0-16.0); MCH 29.1 PG (27-31); MCHC 30.6 g/dL (33-37); MPV 11.8 FL (7.4-10.4); RBC 4.4 XMIL (4.2-5.4)
[2016-10-16] MEDS: HUMULIN R SUBQ SCH (06:39)
[2016-10-16 06:42] LABS: AGAP 7; BUN 18 mg/dL (8-22); CALCIUM 8.5 mg/dL (8.8-10.2); CHLORIDE 99 mmol/L (98-107); COSMO 272; POTASSIUM 4.6 mmol/L (3.5-5.1); SODIUM 133 mmol/L (136-145); TCO2 27 mmol/L (25-35)
--- NOTE | 2016-10-16 08:08 | Diag Imaging Result Doc PS360 ---
EXAM: CHEST-PORTABLE HISTORY: dyspnea TECHNIQUE: Single view of the chest was performed portably. COMPARISON: 10/15/2016 FINDINGS: The cardiomediastinal silhouette is within normal limits. The pulmonary vasculature is not congested. No infiltrate, effusion, or pneumothorax is appreciated. IMPRESSION: No acute cardiopulmonary abnormality is identified. Electronically signed by Luz Barker 10/16/2016 8:05 AM
[2016-10-16] MEDS: HUMULIN R DOSE (PARKWAY) SUBQ SCH ×3 (10:21→21:32)
[2016-10-16 11:53] LABS: URINE CULTURE PL NEEDED? NO
[2016-10-16 12:22] LABS: BILIRUBIN URINE NEGATIVE (NEGATIVE); BLOOD URINE NEGATIVE (NEGATIVE); CLARITY CLEAR (CLEAR); COLOR YELLOW; GLUCOSE URINE NEGATIVE (NEGATIVE); LEUKOCYTES URINE NEGATIVE (NEGATIVE); NITRITE URINE NEGATIVE (NEGATIVE); PROTEIN URINE NEGATIVE (NEGATIVE); SP GRAVITY URINE 1.025; UROBILINOGEN URINE NORMAL
[2016-10-16 12:25] LABS: URINE EPITHELIAL CELLS <10 /HPF (<10); URINE SOURCE CATH
[2016-10-16] MEDS ORDERED: LEVAQUIN 750 MG/D5W 750 MG/150 ML IVPB IV SCH (16:00)
[2016-10-16] MEDS: LOVENOX SUBQ SCH (17:14)
[2016-10-16] MEDS: PROTONIX IV SCH (17:16)
[2016-10-16] MEDS ORDERED: VANCOMYCIN IV PER PHARMACY MISC SCH (18:15)
--- NOTE | 2016-10-16 18:26 | PROGRESS NOTE ---
DATE: 10/16/2016 CHIEF COMPLAINT: Shortness of breath. OBJECTIVE: Vital signs: Blood pressure 91/49, heart rate of 86, respiratory rate 18, temperature 99 degrees, 100% on 40%. General: Well-developed female in no acute distress. Head: Normocephalic, atraumatic. Eyes: Pupils equal, round, reactive to light. Extraocular movements were intact. Ear/nose/throat: She had moist mucous membranes, occasional wheezing but good air throughout. She was a little bit lethargic. LABORATORY DATA: White count 9.5, hemoglobin and hematocrit 12 and 30, platelets 256,000, pH 7.3, pCO2 64, PaO2 75. Rest of the testing was unremarkable. PROBLEM LIST: 1. Acute hypercapnic respiratory failure. She is still fairly hypercapnic. We will continue to follow. She has been on BiPAP now pretty much for the last 12 hours with some improvement. Will continue to follow. 2. Chronic obstructive pulmonary disease. Continue breathing treatments, antibiotics and follow. 3. Diabetes appears to be fairly well controlled. Her sugars have been doing okay. We will continue to monitor with sliding scale. Check an A1c and we will follow closely. 4. Chronic lymphocytic leukemia. We will continue to monitor. So far no major issues associated with that. cc: Lc Parada MD
[2016-10-16] MEDS: SANTYL OINT TOP SCH (19:15)
[2016-10-16] MEDS: BUSPAR PO SCH (20:04)
[2016-10-16] MEDS: VANCOMYCIN 2,000 MG in NS 500 ML IV SCH (20:04)
[2016-10-16] MEDS: XANAX PO SCH (20:04)
[2016-10-16] MEDS: NORCO-7.5 PO PRN (21:43)
[2016-10-17] MEDS: SOLU-MEDROL IV SCH ×3 (00:25→21:24)
[2016-10-17] MEDS: DUONEB (A & A) INH SCH ×6 (03:42→23:04)
[2016-10-17 05:19] LABS: HEMATOCRIT 38.8 % (37.0-47.0); HEMOGLOBIN 11.9 g/dL (12.0-16.0); MCH 28.5 PG (27-31); MCHC 30.7 g/dL (33-37); MPV 11.7 FL (7.4-10.4); RBC 4.17 XMIL (4.2-5.4)
[2016-10-17] MEDS: ATIVAN IV PRN ×5 (05:30→23:30)
[2016-10-17] MEDS: NORCO-7.5 PO PRN ×5 (05:31→23:29)
[2016-10-17 05:41] LABS: AGAP 9; BUN 22 mg/dL (8-22); CALCIUM 8.9 mg/dL (8.8-10.2); CHLORIDE 97 mmol/L (98-107); COSMO 277; POTASSIUM 4.3 mmol/L (3.5-5.1); SODIUM 135 mmol/L (136-145); TCO2 29 mmol/L (25-35)
[2016-10-17 05:56] LABS: BE 5.9 mmoll (-3.0-3.0); BLOOD TYPE ARTERIAL; DRAW SITE L RADIAL; METHB 1.3 % (0.0-1.5); O2(CT) 15.5 mL/dL (15.0-23.0); PO2(98.6) 67 mmHg (60-100); SAMPLE BLOOD; SAO2 96.6 % (95.0-100.0); THB 11.8 g/dL (11.5-17.4); pH(98.6) 7.36 (7.35-7.45)
[2016-10-17 05:57] LABS: HEMOGLOBIN A1C 4.9 % (4.8-6.0)
[2016-10-17 05:59] LABS: ALLEN TEST YES; MODALITY CANNULA; PCO2(98.6) 58 mmHg (35-45)
[2016-10-17] MEDS: HUMULIN R DOSE (PARKWAY) SUBQ SCH ×2 (06:43→11:33)
[2016-10-17] MEDS: PAXIL PO SCH (08:17)
[2016-10-17] MEDS: XANAX PO SCH ×2 (08:17→21:25)
[2016-10-17] MEDS: BUSPAR PO SCH ×2 (08:18→21:25)
[2016-10-17] MEDS: SANTYL OINT TOP SCH ×2 (08:21→18:11)
[2016-10-17] MEDS: VANCOMYCIN 2,000 MG in NS 500 ML IV SCH ×2 (09:05→21:24)
[2016-10-17] MEDS ORDERED: LEVAQUIN 750 MG/D5W 750 MG/150 ML IVPB IV SCH (10:06)
[2016-10-17] MEDS: NICODERM PATCH TD SCH (11:24)
--- NOTE | 2016-10-17 13:26 | PROGRESS NOTE ---
DATE: 10/17/2016 SUBJECTIVE: The patient notes that she is feeling better. She is actually asking to go home. Denies any chest pains or palpitations. States that her breathing is much easier. Denies any dysuria, frequency, or urgency. Denies any hesitancy, polyuria, or polydipsia. OBJECTIVE: Vital Signs: Reviewed. Temperature 98 degrees, pulse 90, respiratory rate 20, blood pressure 119/69, and saturation 98% on 3L. General: Patient is awake, alert, and currently in mild respiratory distress, requiring oxygen. HEENT: Normocephalic, atraumatic. Neck: Supple. Cardiovascular: Regular rate. Chest: Decreased breath sounds, but equal bilaterally. No apparent wheezing. No apparent crackles. Abdomen: Soft. Extremities: Moves all extremities. Neurologic: No focal changes. Skin: Warm and dry. No rashes. DIAGNOSTIC DATA: WBC is 18. ABG with a pH of 7.3, pCO2 improved at 58, base excess of 5.9. Sodium 135, carbon dioxide 29, glucose 194. ASSESSMENT: 1. Acute hypercapnic respiratory failure. Continues to improve. She is off BiPAP and her pCO2 has continued to improve. She is much more alert and oriented this morning. 2. Acute metabolic encephalopathy secondary to hypercapnia. 3. Chronic obstructive pulmonary disease with exacerbation, improving. 4. Leukocytosis certainly could be an acute steroid effect versus infection. She clinically looks better. She was found to have a tampon in that she had forgotten was in there and could have been in there 3-4 days. This certainly raises the question of toxic shock, although her blood pressures are better and everything else is improving. Her leukocytosis most likely is secondary to steroid effect. 5. Diabetes. Blood sugars are stable. 6. Cellulitis. Will continue Levaquin and vancomycin. PLAN: We will continue patient on her current antibiotics, although we will change the Levaquin to p.o. We will continue vancomycin currently, as her white count is elevated. We will change Protonix to p.o. The patient is very eager to be discharged. She is much improved. Therefore, we will make a big drop in her steroids from 60 q.8 to 40 q.12. If she tolerates this, she certainly can be discharged home tomorrow. We will attempt to transition her to the floor today. cc: Hemant Antoine MD
[2016-10-17] MEDS: HUMULIN R (PARKWAY) SUBQ SCH ×2 (16:07→20:20)
[2016-10-17] MEDS: LEVAQUIN PO SCH (16:20)
[2016-10-17] MEDS: GLUCOTROL PO SCH (18:10)
[2016-10-17] MEDS: LOVENOX SUBQ SCH (18:11)
[2016-10-18] MEDS: DUONEB (A & A) INH SCH ×2 (03:21→07:27)
[2016-10-18] MEDS: NORCO-7.5 PO PRN ×2 (05:07→14:20)
[2016-10-18] MEDS: ATIVAN IV PRN ×2 (05:08→14:20)
[2016-10-18] MEDS: HUMULIN R (PARKWAY) SUBQ SCH ×3 (06:23→15:59)
[2016-10-18] MEDS ORDERED: PROTONIX PO SCH (07:00)
[2016-10-18] MEDS: SOLU-MEDROL IV SCH (08:15)
[2016-10-18] MEDS: PAXIL PO SCH (08:15)
[2016-10-18] MEDS: GLUCOTROL PO SCH (08:15)
[2016-10-18] MEDS: XANAX PO SCH (08:15)
[2016-10-18] MEDS: NICODERM PATCH TD SCH (08:15)
[2016-10-18] MEDS: BUSPAR PO SCH (08:15)
[2016-10-18] MEDS: SANTYL OINT TOP SCH (11:19)
[2016-10-18 12:22] LABS: AGAP 7; BUN 25 mg/dL (8-22); CALCIUM 9.3 mg/dL (8.8-10.2); CHLORIDE 99 mmol/L (98-107); COSMO 279; POTASSIUM 4.1 mmol/L (3.5-5.1); SODIUM 136 mmol/L (136-145); TCO2 29 mmol/L (25-35)
[2016-10-18 12:30] LABS: HEMATOCRIT 39.9 % (37.0-47.0); HEMOGLOBIN 12.3 g/dL (12.0-16.0); MCH 28.7 PG (27-31); MCHC 30.8 g/dL (33-37); MPV 11.2 FL (7.4-10.4); RBC 4.29 XMIL (4.2-5.4)
[2016-10-18] MEDS: LEVAQUIN PO SCH (14:20)
[2016-10-18 15:31] VITALS: BP 164/93
[2016-10-18] MEDS ORDERED: VANCOMYCIN 2,000 MG in NS 500 ML IV SCH (17:00)
--- NOTE | 2016-10-19 04:26 | DISCHARGE SUMMARY ---
ADMISSION DATE: 10/15/2016 DISCHARGE DATE: 10/18/2016 DISCHARGE DIAGNOSES: 1. Chronic obstructive pulmonary disease exacerbation. 2. Hypercapnic respiratory failure associated with chronic obstructive pulmonary disease and obstructive sleep apnea. 3. Chronic lymphocytic leukemia. 4. Type 2 diabetes. HOSPITAL COURSE: Patient presented with hypoxia. She was placed on BiPAP. Chest x-ray was actually clear. She was placed on IV steroids, antibiotics, breathing treatments, and BiPAP. She needed BiPAP for the first 24 hours pretty much routinely. Clinically, she stabilized. Her initial white count was 18, then it went down to 9, then it went back to 18, and at discharge it is 20.9. Keep in mind, patient has chronic lymphocytic leukemia and therefore this white count is difficult to assess in the setting of a chronic malignant leukocytosis. Her initial pH of 7.26 improved to 7.3 with pCO2 of 64. Blood gas yesterday showed pH 7.36 which was normal, pCO2 of 58, PaO2 of 67. Clinically though, she improved. Her wheezing has essentially resolved. Her saturations were 98-100% on 2 L. We are evaluating her on room air. When she came in, she was on 4 L. She is on intermittent home oxygen I think with exertion already. A chest x-ray again was clear. Clinically, she felt stabilized on the and was discharged home on Levaquin. She had initially been on vancomycin and Levaquin. Apparently, she had a retained tampon though for 3-4 days but she showed no evidence of hypotension or toxic shock at this point and again clinically has improved. Discharge condition is stable and she was discharged home. DISCHARGE MEDICATIONS: DuoNebs t.i.d., Xanax 0.25 b.i.d. She requested to be transitioned to Ativan so we will do that. BuSpar 5 b.i.d., estradiol norethindrone daily, glipizide 10 b.i.d., hydralazine 50 t.i.d., Levaquin 500 daily for 7 days, lisinopril 20 daily, DuoNebs daily as a nebulizer, Zofran p.r.n., Paxil 20 daily, prednisone taper, and Zanaflex. DISCHARGE CONDITION: Stable. DISCHARGE INSTRUCTIONS: She will need to follow up with her PCP, ROSA Nguyen, in 1-2 weeks. Return for worsening shortness of breath, cough, or fevers. A 32 minute discharge. cc: Lc Parada MD
[2016-10-21 10:30] LABS: PCO2(98.6) 71 mmHg (35-45)
== END 2016-10-18 17:00 | disposition home or self-care (01) ==
LOC: P.ED 14:36 → P.ICU 16:47 → P.MEDSURG 10-17 12:21
PROVIDERS: ATTEND Internal Medicine

== ENCOUNTER 2016-12-18 19:51 | Inpatient (IN) ==
[2016-12-18] MEDS ORDERED: SOLU-MEDROL IV ONE (20:29)
[2016-12-18] MEDS ORDERED: ALBUTEROL NEB INH ONE (20:29)
[2016-12-18] MEDS ORDERED: DUONEB (A & A) INH ONE (20:29)
[2016-12-18] MEDS ORDERED: GLUCOTROL PO ONE (20:30)
[2016-12-18] MEDS ORDERED: PRINIVIL PO ONE (20:31)
[2016-12-18] MEDS ORDERED: APRESOLINE PO ONE (20:32)
[2016-12-18] MEDS ORDERED: APRESOLINE ONE (20:49)
[2016-12-18 21:04] LABS: MANUAL DIFF NEEDED? NO
--- NOTE | 2016-12-18 21:05 | Diag Imaging Result Doc PS360 ---
EXAM: CHEST-2 VIEWS INDICATION: COPD SOB TECHNIQUE: 2 views COMPARISON: 11/24/2016 FINDINGS: There is a calcified granuloma at the left lung base. The lungs are grossly clear. There is no discrete pleural fluid collection or pneumothorax. The cardiomediastinal silhouette and central vasculature are grossly unremarkable. IMPRESSION: No evidence of acute pathology by plain radiograph. Electronically signed by Phliippe Maldonado 12/18/2016 9:02 PM
[2016-12-18 21:11] LABS: BASO% 0.1 % (0.0-0.8); HEMATOCRIT 50.4 % (37.0-47.0); HEMOGLOBIN 15.3 g/dL (12.0-16.0); IMM GRAN# 0.03 X1000 (0.0-0.04); IMM GRAN% 0.2 % (0.0-0.5); LYMPH# 8.18 X1000 (1.2-3.4); LYMPH% 49.4 % (20.5-51.1); MCH 26.3 PG (27-31); MCHC 30.4 g/dL (33-37); MCV 86.6 FL (81-99); MPV 11.4 FL (7.4-10.4); NEUT% 44.3 % (42.2-75.2); PLT 289 X1000 (130-400); RBC 5.82 XMIL (4.2-5.4)
--- NOTE | 2016-12-18 21:13 | EKG Report ---
Test Performed on : 12/18/2016 8:06:58 PM Test Reason : SOB Blood Pressure : / mmHG Vent. Rate : 090 BPM Atrial Rate : 090 BPM P-R Int : 132 ms QRS Dur : 086 ms QT Int : 370 ms P-R-T Axes : 079 -76 072 degrees QTc Int : 452 ms Normal sinus rhythm. Biatrial enlargement Pulmonary disease pattern Left anterior fascicular block Abnormal ECG When compared with ECG of 24-NOV-2016 18:17, Left anterior fascicular block is now present Unconfirmed Result
[2016-12-18 21:36] LABS: AGAP 10; ALBUMIN 3.8 g/dL (3.5-5.0); ALKALINE PHOSPHATASE 82 U/L (32-104); BUN 10 mg/dL (8-22); CALCIUM 9.4 mg/dL (8.8-10.2); CHLORIDE 99 mmol/L (98-107); COSMO 282; GOT 27 U/L (10-30); GPT 18 U/L (10-36); POTASSIUM 3.9 mmol/L (3.5-5.1); SODIUM 141 mmol/L (136-145); TCO2 32 mmol/L (25-35); TOTAL PROTEIN 7.7 g/dL (6.3-8.3)
[2016-12-18] MEDS ORDERED: NICODERM PATCH TD ONE (21:39)
[2016-12-18] MEDS ORDERED: ATIVAN IV ONE (21:39)
[2016-12-18] MEDS ORDERED: ROCEPHIN 1 GM in NS 50 ML IV ONE (21:40)
--- NOTE | 2016-12-18 21:44 | PROVIDER DOCUMENTATION ---
This chart was entered by Celsa Dee Scribe, acting as scribe for Johnny Peters MD. HPI-Respiratory General - General Chief Complaint: Shortness of Breath Stated Complaint: CHEST PAIN,S.O.B. Time Seen by Provider: 12/18/16 20:23 Source: patient Allergies/Adverse Reactions: Patient Allergies Allergy/AdvReac Type Severity Reaction Status Date / Time No Known Allergies Allergy Verified 08/21/16 13:48 Home Medications: Home Medication List Medication Instructions Recorded Confirmed Last Taken Type Buspirone HCl [Buspar] 5 mg PO BID 04/21/16 10/16/16 08/21/16 08:00 History Paroxetine [Paxil] 20 mg PO DAILY 04/21/16 10/16/16 08/21/16 08:00 History Glipizide 10 mg PO BID 05/02/16 10/16/16 08/21/16 08:00 History Hydralazine [Apresoline] 50 mg PO TID #90 tablet 07/19/16 10/16/16 08/21/16 08: 00 Rx LISINOpril [Prinivil] 20 mg PO DAILY #30 tablet 07/19/16 10/16/16 08/21/16 08: 00 Rx Estradiol/Norethindrone Acet 1 each PO DAILY 08/21/16 10/16/16 08/21/16 08:00 History [Estradiol-Noreth 0.5-0.1 mg Tb] Ondansetron [Zofran] 8 mg PO Q6HR #12 tablet 08/21/16 10/16/16 08/21/16 08:00 Rx Tizanidine HCl [Zanaflex] 4 mg PO BID 08/21/16 10/16/16 08/21/16 08:00 History Albuterol 2.5MG/Ipratrop 0.5MG 3 ml INH RTTID #90 neb 08/27/16 10/16/16 Unknown Rx [Duoneb] Nebulizer [Aeroneb Go Nebulizer] 1 each MC DAILY #1 each 08/27/16 10/16/16 Unknown Rx Levofloxacin [Levaquin] 500 mg PO DAILY #7 tablet 10/18/16 Unknown Rx Lorazepam [Ativan] 0.5 mg PO BID PRN #45 tablet 10/18/16 Unknown Rx Prednisone See Taper PO DAILY #30 tablet 10/18/16 Unknown Rx Clindamycin HCl 300 mg PO Q6HR #28 capsule 11/20/16 Unknown Rx - History of Present Illness-Resp Nature of Presenting Problem: 51 Y/O F presents to ED with Respiratory General. Pt states that she has cold symptoms for the past 2 weeks, productive cough with brown phlegm. SOB, wheezing Denies F/N/V/D. Pt states out of meds for 4 days. Pt smoke 1.5 packs a day. Quality of Pain: reports: tightness Severity in ED: reports: moderate Onset/Duration: reports: other (2 weeks) Timing: reports: still present Cough Quality/Degree: reports: productive cough Associated Symptoms: reports: cough, shortness of breath, wheezing. denies: fever/chills Recently seen or treated by another doctor?: No Review of Systems - Adult - REVIEW OF SYSTEMS - ADULT Constitutional: denies: chills, fever Eyes: reports: no symptoms reported Ears, Nose, Mouth & Throat: reports: no symptoms reported Cardiovascular: reports: no symptoms reported Respiratory: reports: cough, shortness of breath, wheezing Gastrointestinal: denies: abdominal pain, diarrhea, nausea, vomiting Genitourinary: reports: no symptoms reported Musculoskeletal: reports: no symptoms reported Integumentary: reports: no symptoms reported Neurological: reports: no symptoms reported Psychiatric: reports: no symptoms reported Endocrine: reports: no symptoms reported Hematologic/Lymphatic: reports: no symptoms reported Allergic/Immunologic: reports: no symptoms reported All Other Systems: Reviewed and Negative Past History - Adult - PAST MEDICAL HISTORY-ADULT Review of Records: reports: Old Records Reviewed, Nursing Assessment Review, Medications Reviewed, Social history reviewed & non-contributory. Major Childhood Illnesses: reports: denies history Cardiovascular: reports: HTN Respiratory: reports: COPD Gastrointestinal: reports: denies history Obstetrical/Gynecological: reports: denies history Genitourinary: reports: denies history Musculoskeletal: reports: denies history Neurological: reports: denies history Psychiatric: reports: anxiety Endocrine/Immune: reports: Diabetes, Leukemia (cll) Other Conditions: reports: denies history - PRIOR SURGERIES/PROCEDURES Surgical/Procedure History: reports: BTL - IMMUNIZATION STATUS Childhood Immunizations: See Nurse Assessment Flu Vaccine: See Nurse Assessment - FAMILY HISTORY Family History: reviewed, not pertinent - SOCIAL HISTORY Smoking: cigarettes, greater than 1 pack/day Physical Exam-General - CONSTITUTIONAL General Appearance: alert, no apparent distress, obese - EYES Eyes: PERRL/EOMI, pink conjunctivae - HEAD, EARS, NOSE, MOUTH & THROAT HENMT: moist mucous membranes, normal ENT inspection, TMs normal, pharynx normal - NECK Neck: full range of motion, supple, normal inspection - RESPIRATORY Respiratory: wheezing (moderate diffused) Progress - PLAN OF CARE/RESULTS Progress/Plan/Lab Results: Vital Signs - 8 hr 12/18/16 19:54 12/18/16 20:35 12/18/16 20:37 Temperature 98 F Pulse Rate 91 H 86 85 Respiratory Rate 24 24 26 H Blood Pressure 171/110 176/126 O2 Sat by Pulse Oximetry 91 L 94 L 95 12/18/16 21:14 12/18/16 21:19 Temperature Pulse Rate 77 80 Respiratory Rate 24 22 Blood Pressure 165/120 164/88 O2 Sat by Pulse Oximetry 91 L 90 L Laboratory Results - last 24 hr 12/18/16 12/18/16 20:46 20:46 WBC 16.56 H RBC 5.82 H Hgb 15.3 Hct 50.4 H MCV 86.6 MCH 26.3 L MCHC 30.4 L RDW Std Deviation 14.8 H Plt Count 289 MPV 11.4 H Immature Gran % (Auto) 0.2 Neut % (Auto) 44.3 Lymph % (Auto) 49.4 [place] % (Auto) 6.0 Eos % (Auto) 0.0 Baso % (Auto) 0.1 Immature Gran # (Auto) 0.03 Neut # (Auto) 7.33 H Lymph # (Auto) 8.18 H [place] # (Auto) 1.00 H Eos # (Auto) 0.00 Baso # (Auto) 0.02 Sodium 141 Potassium 3.9 Chloride 99 Carbon Dioxide 32 Anion Gap 10 BUN 10 Creatinine 0.6 Estimated GFR/1.73 m2 > 60 BUN/Creatinine Ratio 17 Glucose 121 H Calculated Osmolality 282 Calcium 9.4 Total Bilirubin 0.40 AST 27 ALT 18 Alkaline Phosphatase 82 Total Protein 7.7 Albumin 3.8 Globulin 4.0 Albumin/Globulin Ratio 1.0 Orders Category Date Time Status Admit - [facility] Routine AdmDCTranf 12/18/16 21:40 Ordered Activity - Up Ad Merry ORDERED Care 12/18/16 21:40 Active Saline Loc DIRECTED Care 12/18/16 21:40 Active Vital Signs Order ARRIVAL TO ROOM Care 12/18/16 21:40 Active Diabetic Diet Diet 12/18/16 21:42 Active CHEST-2 VIEWS [RAD] Stat Exams 12/18/16 20:00 Completed CBC WITH ELECTRONIC DIFF [HEME] Stat Lab 12/18/16 20:46 Completed CMP [COMPREHENSIVE METABOLIC PANEL] [CHEM] Stat Lab 12/18/16 20:46 Completed Albuterol 2.5MG/Ipratrop 0.5MG [Duoneb (A & A)] Med 12/18/16 20:29 Discontinued 3 ml INH NOW ONE Albuterol 2.5MG/Ipratrop 0.5MG [Duoneb (A & A)] Med 12/18/16 23:30 Ordered 3 ml INH RTQ4H Albuterol [Albuterol Neb] Med 12/18/16 20:29 Discontinued 5 mg INH NOW ONE CefTRIAXONE [Rocephin] 1 gm Med 12/18/16 21:40 Active 0.9% Sodium Chloride Inj [Ns] 50 ml IV NOW Glipizide [Glucotrol] Med 12/18/16 20:30 Discontinued 10 mg PO NOW ONE Hydralazine [Apresoline] Med 12/18/16 20:49 Discontinued 50 mg .ROUTE .STK-MED ONE Hydralazine [Apresoline] Med 12/18/16 20:32 Discontinued 50 mg PO NOW ONE LISINOpril [Prinivil] Med 12/18/16 20:31 Discontinued 20 mg PO NOW ONE Lorazepam [Ativan] Med 12/18/16 21:39 Discontinued 1 mg IV NOW ONE Methylprednisolone Sod Succ [Solu-Medrol] Med 12/18/16 20:29 Discontinued 125 mg IV NOW ONE Nicotine Patch [Nicoderm Patch] Med 12/18/16 21:39 Discontinued 21 mg TD NOW ONE Aerosol Treatments Routine Oth 12/18/16 20:29 Completed Aerosol Treatments Routine Oth 12/18/16 21:42 Active Aerosol Treatments Stat Oth 12/18/16 20:29 Completed Aerosol Treatments Stat Oth 12/18/16 21:42 Active Oxygen Device Routine Oth 12/18/16 21:42 Active EKG [EKG] Stat Ther 12/18/16 20:00 Draft Transfer/Admit Order [TRANSFER] Routine Transfer 12/18/16 21:42 Ordered Result Diagrams: 12/18/16 20:46 12/18/16 20:46 - EKG 1 Time of EKG reading by physician:: 20:06 EKG Read and Signed by:: Johnny Peters EKG Interpretation (*Must complete 3 of following elements*): Normal Rate: 90 Comments: Abnormal ECG,Biatrial enlargement, Pulmonary disease pattern, - CONSULTS/PCP/HOSPITALIST Notification #1 *Consult/PCP/Hospitalist*: Time Discussed: 21:40 Reason/Comments: Admit Consult Disposition: Admit (Admit Accepted) Departure - Departure Date of Disposition Decision: 12/18/16 Time of Disposition Decision: 21:43 DIAGNOSIS: COPD with acute exacerbation Disposition: ADMITTED INPATIENT 09 Certified Medical Emergency: Emergent Condition: Fair Referrals and Follow-Ups: Shantell Rodrigez CRNP [Primary Care Provider] - Discharge Education: Smoking, You Can Quit, [id number], Smoking Cessation, Tips for Success - Critical Care Note This patient required my direct & personal management of CC.: No Attestation - Physician/ SAL Attestation Patient care was provided by Advanced Practice Provider:: No The physician spent face to face time with patient:: Yes Advanced Practice Provider documentation review:: Supervising physician onsite and consulted in the evaluation and care of this patient. The physician did have a face to face encounter with the patient. This chart was documented by the indicated scribe, (Celas Dee Scribe) and accurately reflects the services I performed and decisions made by me, Johnny Peters MD, as attested by the provider's signature.
[2016-12-18] MEDS: DUONEB (A & A) INH SCH (23:23)
[2016-12-19] MEDS: DUONEB (A & A) INH SCH ×4 (03:07→15:16)
[2016-12-19] MEDS ORDERED: TYLENOL PO ONE (03:28)
[2016-12-19] MEDS ORDERED: SALINE LOCK IV FLUID XX ONE (07:38)
[2016-12-19] MEDS ORDERED: ZOFRAN IV PRN (07:39)
[2016-12-19] MEDS ORDERED: TYLENOL PO PRN (07:39)
[2016-12-19] MEDS ORDERED: DUONEB (A & A) INH PRN (07:39)
[2016-12-19] MEDS: NS 1,000 ML IV SCH (08:39)
[2016-12-19] MEDS: LEVAQUIN 500 MG/D5W 500 MG/100 ML IVPB IV SCH (08:40)
[2016-12-19] MEDS: LOVENOX SUBQ SCH (08:40)
[2016-12-19] MEDS: NORCO-5 PO PRN (10:14)
[2016-12-19] MEDS: KLONOPIN PO PRN ×2 (10:14→16:46)
[2016-12-19] MEDS: HUMALOG DOSE (PARKWAY) SUBQ SCH ×3 (11:02→21:45)
[2016-12-19] MEDS: GLUCOTROL PO SCH (16:46)
--- NOTE | 2016-12-19 21:36 | HISTORY AND PHYSICAL ---
CHIEF COMPLAINT: Shortness of breath. HISTORY OF PRESENT ILLNESS: This is a 51-year-old female who presented to the emergency room complaining of cold symptoms with a productive cough and brown phlegm, shortness of breath and wheezing. This started about 2 weeks ago and they have gradually increased. She did state that during this time she ran out of her pulmonary medications. On arrival to the emergency room. She had an O2 saturation of 91% on room air. Respirations were about 24 with a pressure of 171/110. She was given Ativan, DuoNebs as well as Solu-Medrol. Rocephin was started and she was admitted for further evaluation and treatment. PAST MEDICAL HISTORY: 1. Chronic obstructive pulmonary disease. 2. CLL. 3. Diabetes type 2. 4. Anxiety disorder. PAST SURGICAL HISTORY: Bilateral tubal ligation. SOCIAL HISTORY: She continues to smoke about 1-1/2 packs a day. She denies alcohol or illicit drug use. ALLERGIES: No known drug allergies. MEDICATIONS: A list will be obtained. REVIEW OF SYSTEMS: A 14 point review of systems was discussed with the patient with pertinent positives as stated in HPI. She denied chest pain, palpitations, dizziness, syncope, PND, nausea, vomiting, diarrhea, constipation, black or bloody vomitus, black or bloody stools, hematuria, dysuria, frequency, urgency. PHYSICAL EXAMINATION: GENERAL: This is a 51-year-old female who is sitting up in the bed, watching TV , in no distress. VITAL SIGNS: Blood pressure is 140/89 with a heart rate of 100, respirations are 18, temperature is 98.3 degrees oral with O2 saturations 97-99%, on 2 L nasal cannula. HEENT: Head is normocephalic, atraumatic. Pupils equal, round, reactive to light. EOMs are intact. Sclerae anicteric. Mucous membranes are moist. NECK: Supple. Trachea midline. CARDIOVASCULAR: Regular rate and rhythm. S1, S2 appreciated. PULMONARY: Breath sounds are diminished throughout with scattered expiratory wheezing noted. No increased work of breathing noted. GASTROINTESTINAL: Abdomen is soft, nontender, nondistended with bowel sounds in all 4 quadrants. BACK: No CVAT. No spine tenderness. MUSCULOSKELETAL: Good range of motion to joints. EXTREMITIES: No clubbing, cyanosis, or edema. Calves nontender. Pulses are palpable x4. NEUROLOGIC: She is alert and oriented x3. DIAGNOSTICS: WBC is 16.5 with a hemoglobin of 15.3, hematocrit of 50.4 and platelets of 289,000. Sodium is 141, potassium 3.9, BUN 10, creatinine 0.6 with a glucose of 121. Chest x-ray revealed no evidence of acute pathology. ASSESSMENT AND PLAN: 1. Acute hypoxic respiratory failure. 2. Chronic obstructive pulmonary disease exacerbation. 3. Diabetes mellitus with hyperglycemia. 4. Chronic lymphocytic leukemia. PLAN: She will be admitted to the hospital. We will identify her home medications and continue as appropriate. We will give supplemental oxygen, DuoNebs q.4 hours and q.2 hours p.r.n. Steroids to taper. For antibiotic coverage we will give Levaquin. For DVT prophylaxis we will use Lovenox 30 mg q.24 hours. For GI prophylaxis we will use Prilosec. We will give a nicotine patch. We will also give gentle hydration. She will be placed on pattern blood glucose with sliding scale insulin Further treatments pending hospital course. Dictated by ROSA Mcguire for Hemant Antoine MD cc: ROSA Mcguire MD [facility]
[2016-12-19] MEDS: BUSPAR PO SCH (21:46)
[2016-12-20] MEDS: NS 1,000 ML IV SCH ×2 (00:50→16:41)
[2016-12-20] MEDS: NORCO-5 PO PRN ×5 (00:56→21:50)
[2016-12-20] MEDS: KLONOPIN PO PRN ×3 (00:56→16:41)
[2016-12-20] MEDS: DUONEB (A & A) INH SCH ×7 (04:31→23:25)
[2016-12-20 06:17] LABS: BASO% 0.2 % (0.0-0.8); HEMATOCRIT 42.9 % (37.0-47.0); HEMOGLOBIN 12.4 g/dL (12.0-16.0); IMM GRAN# 0.02 X1000 (0.0-0.04); IMM GRAN% 0.2 % (0.0-0.5); LYMPH% 41.6 % (20.5-51.1); MANUAL DIFF NEEDED? YES; MCH 25.7 PG (27-31); MCHC 28.9 g/dL (33-37); MONO# 0.88 X1000 (0.11-0.59); MONO% 7.8 % (1.7-9.3); MPV 11.5 FL (7.4-10.4); NEUT% 50.2 % (42.2-75.2); PLT 220 X1000 (130-400); RBC 4.82 XMIL (4.2-5.4)
[2016-12-20 06:19] LABS: LYMPHS 35 % (21-51); MONO 5 % (1-9)
[2016-12-20] MEDS: HUMALOG DOSE (PARKWAY) SUBQ SCH ×4 (06:19→21:32)
[2016-12-20 06:38] LABS: AGAP 5; ALBUMIN 2.9 g/dL (3.5-5.0); ALKALINE PHOSPHATASE 63 U/L (32-104); BUN 23 mg/dL (8-22); CALCIUM 8.3 mg/dL (8.8-10.2); CHLORIDE 106 mmol/L (98-107); COSMO 288; GOT 17 U/L (10-30); GPT 11 U/L (10-36); SODIUM 143 mmol/L (136-145); TCO2 32 mmol/L (25-35); TOTAL PROTEIN 5.7 g/dL (6.3-8.3)
[2016-12-20] MEDS: LOVENOX SUBQ SCH (08:16)
[2016-12-20] MEDS: GLUCOTROL PO SCH ×2 (08:16→16:41)
[2016-12-20] MEDS: LEVAQUIN 500 MG/D5W 500 MG/100 ML IVPB IV SCH (08:16)
[2016-12-20] MEDS: BUSPAR PO SCH ×2 (08:16→21:31)
[2016-12-20] MEDS: PRINIVIL PO SCH (08:16)
[2016-12-20] MEDS: PAXIL PO SCH (08:17)
[2016-12-20] MEDS: SOLU-MEDROL IV SCH ×2 (10:16→21:33)
--- NOTE | 2016-12-20 18:16 | PROGRESS NOTE ---
DATE: 12/20/2016 SUBJECTIVE: The patient notes that she is starting to feel a little bit better. She slept a little bit better last night. Denies any chest pain, palpitations. Denies any fevers or chills. Otherwise states that she is feeling better. Still a little uneasy with going home. Still has increased work of breathing when she attempts to get out of bed. OBJECTIVE: Vital Signs: Reviewed. She is afebrile. Blood pressure is stable, respiratory 20- 22, heart rate stable. General: Patient is awake, alert, obese female is currently in mild respiratory distress. She is pleasant to talk with. Neck: Supple. No apparent JVD. CV: Regular rate and rhythm. No murmurs. Chest: Decreased breath sounds bilaterally but equal and improved from yesterday's exam. Decreased wheezing from yesterday's exam. Abdomen: Soft, obese, nondistended. Extremities: Moves all extremities. Neurologic: No focal changes. Skin: Warm and dry. No rashes. ASSESSMENT: 1. Acute hypoxic respiratory failure. 2. Chronic obstructive pulmonary disease with exacerbation. 3. Morbid obesity. 4. Diabetes with hyperglycemia. 5. Chronic lymphocytic leukemia. PLAN: Will continue patient in hospital today, continue IV fluids, antibiotics, breathing treatments. Will decrease her steroids. Will continue to follow. Hopefully home in the next 1-2 days. cc: Hemant Antoine MD
[2016-12-21] MEDS: KLONOPIN PO PRN ×2 (00:28→09:05)
[2016-12-21] MEDS: DUONEB (A & A) INH SCH ×2 (03:35→07:39)
[2016-12-21] MEDS: NS 1,000 ML IV SCH ×2 (06:20→09:05)
[2016-12-21] MEDS: HUMALOG DOSE (PARKWAY) SUBQ SCH ×2 (06:21→11:39)
[2016-12-21 08:25] VITALS: BP 154/94
[2016-12-21] MEDS: LOVENOX SUBQ SCH (09:04)
[2016-12-21] MEDS: BUSPAR PO SCH (09:04)
[2016-12-21] MEDS: GLUCOTROL PO SCH (09:04)
[2016-12-21] MEDS: SOLU-MEDROL IV SCH (09:04)
[2016-12-21] MEDS: LEVAQUIN 500 MG/D5W 500 MG/100 ML IVPB IV SCH (09:04)
[2016-12-21] MEDS: PAXIL PO SCH (09:05)
[2016-12-21] MEDS: PRINIVIL PO SCH (09:05)
[2016-12-21] MEDS ORDERED: NICODERM PATCH TD SCH (09:15)
[2016-12-21] MEDS: NORCO-5 PO PRN (09:16)
--- NOTE | 2016-12-22 05:03 | DISCHARGE SUMMARY ---
ADMISSION DATE: 12/18/2016 DISCHARGE DATE: 12/21/2016 DISCHARGE DIAGNOSES: 1. Acute hypoxic respiratory failure, resolved. 2. Chronic obstructive pulmonary disease with moderate exacerbation, improved. 3. Morbid obesity. 4. Diabetes with hyperglycemia. 5. Chronic lymphocytic leukemia. CONSULTATIONS: None. PROCEDURE: None. BRIEF HOSPITAL COURSE: Patient was admitted as noted in HPI, treated in usual fashion. Placed on steroids, antibiotics, breathing treatments, and oxygen. She continued to improve. On discharge, she is awake, alert. She is in no distress, and she is feeling better. DISPOSITION: The patient will be discharged home. She will continue her breathing treatments at home. She will follow up outpatient with primary care of her choice. I discussed with her that she does need to follow up within 1-2 weeks max. We did write a prescription for Klonopin, BuSpar, and [place], each to be taken twice a day as needed #20, no refills as well as with Levaquin for 5 days, and a Medrol Dosepak. The patient knows to check her blood sugars at home. She knows to be much more diligent in her diabetic care, given that she is on steroids and this certainly could elevate her blood sugars. TIME SPENT: 35 minutes was spent. cc: Hemant Antoine MD
== END 2016-12-21 12:40 | disposition home or self-care (01) ==
LOC: P.ED 19:51 → P.MEDSURG 22:03
PROVIDERS: ATTEND Family Medicine